=== PATIENT | female | born 1945 | race Caucasian/White ===

== ENCOUNTER → 2019-03-19 09:48 | Outpatient (CLI) | payer MEDICARE, OTHER, SELFPAY ==
[2019-03-19 09:47] VITALS: BMI 28.3
--- NOTE | 2019-03-19 09:49 | RAD_ITS ---
STUDY: X-RAY - LEFT KNEE REASON FOR EXAM: Female, 73 years old. Left knee pain TECHNIQUE: 4 view(s) of the knee. COMPARISON: None. FINDINGS: Normal visualized distal femur. Normal visualized proximal tibia and fibula. Normal proximal tibiofibular articulation. There is severe degenerative arthrosis of the medial femorotibial compartment with severe joint space narrowing. There is mild degenerative arthrosis of the lateral femorotibial compartment. There is severe degenerative arthrosis of the patellofemoral articulation. There is a soft tissue prominence in the suprapatellar region suggesting a small volume joint effusion. There are atherosclerotic calcifications. RAD/Knee 4 or More Views IMPRESSION: Tricompartment osteoarthrosis, as above. Electronically Signed: Jayden Alvarez MD (Brooks) at 17:11 EDT , Service support ,
--- NOTE | 2019-03-19 09:49 | RAD_ITS ---
STUDY: X-RAY - RIGHT KNEE REASON FOR EXAM: Female, 73 years old. Right knee pain TECHNIQUE: 4 view(s) of the knee. COMPARISON: None. FINDINGS: Normal visualized distal femur. Normal visualized proximal tibia and fibula. Normal proximal tibiofibular articulation. There is moderate degenerative arthrosis of the medial femorotibial compartment with moderate joint space narrowing. There is moderate degenerative arthrosis of the lateral femorotibial compartment with moderate joint space narrowing. There is moderate degenerative arthrosis of the patellofemoral articulation. There is a soft tissue prominence in the suprapatellar region suggesting a small volume joint effusion. There is mild subluxation of the femur in relation to the tibia, likely degenerative. The soft tissue structures are unremarkable. RAD/Knee 4 or More Views IMPRESSION: Tricompartmental arthrosis. Electronically Signed: Jayden Alvarez MD (Brooks) at 17:13 EDT , Service support ,
== END ==
PROVIDERS: Referring Provider Orthopaedic Surgery; Visit Provider Orthopaedic Surgery
DX: M17.0 Bilateral primary osteoarthritis of knee (principal)
CPT/HCPCS: 73564

== ENCOUNTER 2021-06-20 12:00 | Emergency (ER) | payer MEDICARE, OTHER, SELFPAY ==
[2021-06-20 12:02] VITALS: BP 143/108; PULSE 136; RESP 18; TEMP 36.1; O2SAT 100; BMI 31.6
--- NOTE | 2021-06-20 12:05 | ED.RN ---
called for ekg at 1205.
--- NOTE | 2021-06-20 12:07 | EKG12_ITS ---
Test Reason : SOB/TACHY Blood Pressure : / mmHG Vent. Rate : 137 BPM Atrial Rate : 267 BPM P-R Int : 000 ms QRS Dur : 080 ms QT Int : 320 ms P-R-T Axes : 000 043 -39 degrees QTc Int : 483 ms Atrial fibrillation Nonspecific ST and T wave abnormality Abnormal ECG Confirmed by DANIE JIMÉNEZ, JOEY ([id number]), legal editor SAKSHI FARMER ([id number]) on 06/22/2021 12:42:54 PM Referred By: MAYURI/RAMONA Confirmed By:VLADIMIR HELTON MD
--- NOTE | 2021-06-20 12:15 | ED.VIS.CHEST ---
HPI History of Present Illness Chief Complaint: Shortness of Breath Detail of Chief Complaint: Palpitations. Informant: patient Onset/Context/Timing Onset: Days Activity at onset: gradual Timing: Continuous Associated Symptoms: Positive for Dyspnea and Palpitations; Negative for Nausea, Vomiting, Diaphoresis, Cough, Fever, Lightheadedness and Acid Reflux Narrative Narrative: 75-year-old female history of hypothyroidism and hypertension. No prior cardiac disease that she is aware of. States has been short of breath with palpitations and skipping heartbeats for the last week. Primary care physician sent her in emergency department be evaluated. She denies any history of DVT or PE. No leg swelling. No recent travel or surgery or immobilization. No hemoptysis. No chest pain. Prior Similar Symptoms: No Recent Illness/Hospitalization: No CVD Risk Factors: Positive for Hypertension and Smoking; Negative for Diabetes and Hypercholesterolemia PE Risk Factors: Negative for Recent Travel/Surgery, Recent Immobilization, Prior DVT or PE, Cancer and OCP + Smoking + >/=35 TAD Risk Factors: Positive for Hypertension; Negative for Marfan's Syndrome PFSH PFSH Home Medications atenolol 25 mg PO DAILY 06/20/21 [History Last Taken 06/20/21] atorvastatin 40 mg PO QHS 06/20/21 [History Last Taken 06/19/21] ibuprofen 400 mg PO QHS 06/20/21 [History Last Taken 06/19/21] levothyroxine [Euthyrox] 88 mcg PO DAILY 06/20/21 [History Last Taken 06/20/21] omeprazole magnesium [Prilosec OTC] 20 mg PO DAILY 06/20/21 [History Last Taken 06/19/21] Allergy/AdvReac Type Severity Reaction Status Date / Time No Known Allergies Allergy Verified 06/20/21 12:01 Social History Smoking Status: Current every day smoker tobacco type: e-cigarettes ROS ROS ED ROS Narrative Short of breath. Palpitations. Accelerated heart rate. Yes Review of Systems ROS Unobtainable: Denies due to encephalopathy Constitutional Constitutional ED: Denies fever(s) Eyes Eyes: Denies none ENT ENT ED: Denies ear pain Cardiovascular Cardiovascular: Reports as per HPI, palpitations and racing heartbeat; Denies chest pain Respiratory/Chest Respiratory/Chest: Reports dyspnea; Denies cough Gastrointestinal Gastrointestinal: Denies abdominal pain, diarrhea, nausea or vomiting Genitourinary Genitourinary ED: Denies dysuria Musculoskeletal Musculoskeletal: Denies myalgias Integumentary Denies rash Neurologic Neurologic: Denies headache(s) Psychiatric Psychiatric: Denies depression Hematologic/Lymphatic Hematologic/Lymphatic: Denies easy bruising Allergic/Immunologic Allergic/Immunologic ED: Denies urticaria EXAM Physical Exam Narrative Exam Narrative: 75-year-old female no distress. On the monitor she is in A. fib RVR rate about 136. Pulse ox 9% on room air no hypoxia. Afebrile. She does not look septic or toxic. HEENT exam unremarkable. Neck nontender no JVD. Lungs clear to auscultation bilaterally. Heart irregularly irregular rate about 136 no murmur. A. fib with RVR. Chest were nontender. Abdomen soft nontender. Moving all 4 extremities. Calves are nontender without edema. Neurologically she is awake and alert moving all 4 extremities. Const Vital Signs: 06/20/21 12:02 06/20/21 12:15 06/20/21 12:16 Temperature 97.0 F L Temperature Source Temporal Pulse Rate 136 H Respiratory Rate 18 Respiratory Effort Normal Non-Labored Short of Breath Respiratory Depth Normal Respiratory Pattern Normal Blood Pressure 143/108 H Blood Pressure Mean 119 Pulse Ox 100 Oxygen Delivery Method Room Air Room Air Room Air 06/20/21 12:37 06/20/21 13:43 06/20/21 15:12 Temperature Temperature Source Pulse Rate 59 L 61 108 H Respiratory Rate 17 13 16 Respiratory Effort Respiratory Depth Respiratory Pattern Blood Pressure 90/59 L 104/70 116/94 H Blood Pressure Mean 69 81 101 Pulse Ox 96 98 97 Oxygen Delivery Method Room Air Room Air Room Air 06/20/21 15:49 Temperature Temperature Source Pulse Rate 120 H Respiratory Rate 14 Respiratory Effort Respiratory Depth Respiratory Pattern Blood Pressure 122/84 H Blood Pressure Mean 96 Pulse Ox 98 Oxygen Delivery Method Room Air Positive well nourished and well developed; Negative for obese, cachectic, contractures or unkempt General Appearance ED: well developed and NAD; Negative for unkempt, cachectic, contractures or pallor Nutritional Appearance: Negative for cachectic or obese HEENT Reports moist mucous membranes normocephalic and atraumatic; Negative for trauma or tenderness Eyes PERRL and EOMs intact bilaterally Neck no lymphadenopathy, supple and no JVD General: Negative for tenderness Chest Wall inspection of chest normal and palpation of chest normal Chest: Negative for tenderness Resp normal respiratory effort and clear to auscultation bilaterally Effort and Inspection: respiratory distress Auscultation: Negative for rales, rhonchi or wheezes Cardio no murmurs; Negative for regular rate or regular rhythm Rate: tachycardic and other Other Details: Atrial fibrillation with RVR rate about 136. GI normal to inspection, nondistended, normoactive bowel sounds, soft to palpation, non-tender, non-distended and no masses Auscultation: Negative for hyperactive bowel sounds Back/Spine no CVA tenderness General Back: Negative for CVA tenderness Extremity normal to inspection General Extremety ED: Negative for edema or tenderness General Extremity: Negative for edema Neuro oriented x3 Sensorium / Orientation: awake, alert, oriented to person, oriented to place and oriented to time Motor Exam: strength 5/5 throughout Psych mental status grossly normal Appearance: Negative for unkempt Mood & Affect: Negative for depressed or tearful Skin no rashes or lesions noted and no wounds General Skin Exam: Negative for jaundice or pallor MDM MDM MDM Narrative Medical decision making narrative: 75-year-old female with recurrent A. fib RVR. Be treated with Cardizem 25 mg IV. She may or may not have to go on a drip. She will undergo a cardiac work-up. Patient was given a dose of IV Cardizem. Her heart rate 1-60. She was only given 15 mg of the Cardizem because she had such a profound response to it. She then became transiently hypotensive which is improved with IV fluids and time. Repeat exam at 330 her heart rate still A. fib she is between 90 and 125.` I was planning on admitting the patient on a Cardizem drip she and her daughter really do not want her admitted. We discussed at length. She will be given a dose of labetalol and observe if her rate stays below 100 and she is doing well and comfortable with her being discharged home with close follow-up. If she continues to be tachycardic then she will be reassessed and discussed admission again. Should be turned over to the afternoon physician. Lab Data Attestation: I reviewed the patient's lab results. Lab results narrative: CBC shows a normal white count 8. Hemoglobin 13. PT, INR and PTT are normal. Electrolytes show a gap of 7 BUN of 20 creatinine 1. Glucose 136. Troponin VII TSH 3.78. Labs: Laboratory Results - last 24 hr 06/20/21 06/20/21 06/20/21 12:12 12:12 12:12 WBC 8.4 RBC 4.51 Hgb 13.2 Hct 39.8 MCV 88.2 MCH 29.3 MCHC 33.2 RDW Std Deviation 40.7 RDW Coeff of Opal 12.6 Plt Count 270 MPV 10.2 Immature Gran % (Auto) 0.400 Neut % (Auto) 56.1 Lymph % (Auto) 32.8 [place] % (Auto) 7.8 Eos % (Auto) 2.2 Baso % (Auto) 0.7 Absolute Neuts (auto) 4.7 Absolute Lymphs (auto) 2.74 Nucleated RBC % 0 PT 12.1 INR 1.0 APTT 28.1 Sodium 137 Potassium 4.4 Chloride 104 Carbon Dioxide 26.0 Anion Gap 7 BUN 20 H Creatinine 1.06 H Estim Creat Clear Calc 51.36 Est GFR (MDRD) Af Amer 65 Est GFR (MDRD) Non-Af 54 L BUN/Creatinine Ratio 18.9 Glucose 136 H Calcium 9.4 Troponin I High Sens 7 TSH 3.78 H Radiography Chest X-Ray - ED: 1 View, Read by ED Physician, Heart, Lungs, Mediastinum, Bony Structures, No Acute Disease and Chronic Changes Diagnostic Testing: Clinical Impression(s) from Imaging Studies Chest X-Ray 06/20/21 12:20 IMPRESSION: Hyperinflation. The lungs are clear. Electronically Signed: Francisco J Ambrose MD at 12:30 EST , Service support , Single view chest x-ray shows no acute abnormality. Normal cardiac silhouette. No infiltrates. No failure. Rhythm Strip Rhythm Strip: A-fib Rate: 136 Ectopy: None EKG Initial EKG: Attestation: I personally reviewed and interpreted this EKG as follows: Interpretation: No Acute Injury Pattern and Atrial Fibrillation Comments: Atrial fibrillation with rapid ventricular rate. No acute signs of [place]. Follow-up EKG: Attestation: I personally reviewed and interpreted this EKG as follows: Interpretation: Atrial Fibrillation Comments: Second EKG was obtained that the patient was treated with IV Cardizem. She remains in A. fib but now has a controlled rate at 60. Prior EKG tracings: available for review Prior: Unchanged Discharge Plan Triage Chief Complaint: Shortness of Breath ED Provider: Humza Singer Dx/Rx/DC Orders Clinical Impression: Atrial fibrillation with rapid ventricular response, History of atrial fibrillation, History of hypothyroidism Instructions: ED AFIB Prescriptions: No Action atorvastatin 40 mg tablet 40 mg PO QHS RF: 0 atenolol 25 mg tablet 25 mg PO DAILY RF: 0 levothyroxine [Euthyrox] 88 mcg tablet 88 mcg PO DAILY RF: 0 ibuprofen 200 mg Tablet 400 mg PO QHS RF: 0 omeprazole magnesium [Prilosec OTC] 20 mg Tablet,Delayed Release (Dr/Ec) 20 mg PO DAILY RF: 0 Primary Care Provider: Mahnaz Cali NP Referrals: Mahnaz Cali NP, DIRECTOR EDUCATION-C [Primary Care Provider] - As soon as possible Activity Restrictions/Additional Instructions: Follow-up with your rn production as soon as possible. Continue your current medications. Return if feeling worse. Disposition Disposition: Home, Self Care
[2021-06-20 12:20] LABS: Absolute Lymphocyte Count 2.74 X10^3/uL (0.83-4.51); Absolute Neutrophil Count 4.7 X10^3/uL (2.0-7.7); Basophil# 0.06 X10^3/uL; Basophil% 0.7 % (0-1); Eosinophil# 0.18 X10^3/uL; Eosinophils% 2.2 % (0-5); Hematocrit 39.8 % (37-47); Hemoglobin 13.2 g/dL (12.0-15.0); Lymphocyte # 2.74 X10^3/ul (0.83-4.51); Lymphocyte % 32.8 % (19-41); Mean Corp Hgb Conc 33.2 g/dL (32-36); Mean Corpuscular Hgb 29.3 pg (27.0-32.0); Mean Corpuscular Volume 88.2 fL (81-99); Mean Platelet Vol. 10.2 fl (6.2-12.0); Monocyte# 0.65 X10^3/uL; Monocyte% 7.8 % (0-10); NRBC Flagged by Analyzer 0 % (0-5); Neutrophil # 4.69 X10^3/uL (2.7-7.7); Neutrophil % 56.1 % (47-70); Platelet Count 270 K/mm3 (150-450); RBC Distribution Width CV 12.6 % (11.6-14.6); RBC Distribution Width SD 40.7 fl (35.1-43.9); Red Blood Count 4.51 M/mm3 (4.2-5.4); White Blood Count 8.4 K/mm3 (4.4-11.0)
--- NOTE | 2021-06-20 12:20 | RAD_ITS ---
STUDY: X-RAY CHEST REASON FOR EXAM: Female, 75 years old. Chest pain and shortness of breath for months. TECHNIQUE: Single AP portable view of the chest. COMPARISON: None. FINDINGS: EKG electrodes are seen. There is hyperinflation of the lungs consistent with chronic obstructive lung disease (COPD). There is no demonstrated pleural abnormality. Normal size heart. Normal mediastinum and arnold. Normal visualized pulmonary arteries. There is atherosclerotic calcification of the aortic arch with tortuosity. Normal visualized thoracic spine. Normal visualized ribs, clavicles, and shoulders. There is no demonstrated abnormality of the visualized soft tissue structures of the upper abdomen. RAD/Chest 1 View (Portable) IMPRESSION: Hyperinflation. The lungs are clear. Electronically Signed: Francisco J Ambrose MD at 12:30 EST , Service support ,
[2021-06-20] MEDS: dilTIAZem 25 MG/5 ML Vial IV BOLUS (12:22)
[2021-06-20 12:28] LABS: Prothrombin Time (Protime)PT. 12.1 SECONDS (11.7-14.9)
[2021-06-20 12:29] LABS: Partial Thromboplast Time 28.1 Seconds (24.1-36.2)
[2021-06-20] MEDS: DiphenhydrAMINE 50 MG/ML Syringe 25 MG IV (12:31)
--- NOTE | 2021-06-20 12:32 | ED.RN ---
Pt. reports feeling itching at arm then face became flushed and hot. pt. was only given about 15mg of Cardizem. Doctor notified of symptoms and Benadryl was ordered and given. Normal saline bolus also give, as pressure was 81/49.
[2021-06-20 12:37] VITALS: BP 90/59; PULSE 59; RESP 17; O2SAT 96
--- NOTE | 2021-06-20 12:41 | EKG12_ITS ---
Test Reason : REPEAT-RHYTHM CHANGE Blood Pressure : / mmHG Vent. Rate : 060 BPM Atrial Rate : 076 BPM P-R Int : 000 ms QRS Dur : 082 ms QT Int : 392 ms P-R-T Axes : 000 012 -27 degrees QTc Int : 392 ms Atrial fibrillation Nonspecific ST abnormality Abnormal ECG Confirmed by DANIE JIMÉNEZ, JOEY ([id number]), manuscript editor SAKSHI FARMER ([id number]) on 06/22/2021 12:43:21 PM Referred By: RAMONA Confirmed By:VLADIMIR HELTON MD
[2021-06-20 12:44] LABS: Anion Gap 7 (5-15); BUN 20 mg/dL (7-18); BUN/Creat Ratio 18.9 RATIO (10-20); Calcium,Total 9.4 mg/dL (8.5-10.1); Chloride 104 mmol/L (98-107); Creatinine, Serum 1.06 mg/dL (0.55-1.02); EST Glomerular Filtration Rate 54 mL/min (>60); Est Glom Filt Rate - Afr Amer 65 mL/min (>60); Estimated Creatinine Clearance 51.36 ml/min; Glucose 136 mg/dL (74-106); Potassium 4.4 mmol/L (3.5-5.1); Sodium Level 137 mmol/L (136-145); Thyroid Stim Hormone (TSH) 3.78 uIU/mL (0.358-3.74); Troponin-I HS 7 pg/mL (3.0-54.0)
[2021-06-20 13:43] VITALS: BP 104/70; PULSE 61; RESP 13; O2SAT 98
[2021-06-20 15:12] VITALS: BP 116/94; PULSE 108; RESP 16; O2SAT 97
[2021-06-20] MEDS: Labetalol (Prefilled) 20 MG/4 ML 10 MG IV (15:47)
[2021-06-20 15:49] VITALS: BP 122/84; PULSE 120; RESP 14; O2SAT 98
[2021-06-20 16:34] VITALS: BP 111/98; PULSE 115; RESP 16; O2SAT 98
== END 2021-06-20 17:09 | disposition home or self-care (01) ==
PROVIDERS: Emergency Provider Emergency Medicine; PCP Nurse Practitioner Primary Care
DX: I48.91 Unspecified atrial fibrillation (principal); E03.9 Hypothyroidism, unspecified; I10 Essential (primary) hypertension; F17.290 Nicotine dependence, other tobacco product, uncomplicated; Z79.899 Other long term (current) drug therapy
CPT/HCPCS: 71045; 80048; 84443; 84484; 85025; 85610; 85730; 93005; 96374; 96375; 99284; A4216

== ENCOUNTER 2021-06-21 15:01 | Observation (INO) | payer MEDICARE, OTHER, SELFPAY ==
[2021-06-21] VITALS (18 sets, daily range): BP systolic 101–135; BP diastolic 61–104; PULSE 80–140; RESP 12–25; TEMP 36.3–36.7; O2SAT 88–100; BMI 31.5
--- NOTE | 2021-06-21 16:00 | EKG12_ITS ---
Test Reason : AFIB Blood Pressure : / mmHG Vent. Rate : 134 BPM Atrial Rate : 117 BPM P-R Int : 000 ms QRS Dur : 062 ms QT Int : 296 ms P-R-T Axes : 000 044 -55 degrees QTc Int : 442 ms Atrial fibrillation Low voltage QRS (Limb Leads) Nonspecific ST and T wave abnormality Abnormal ECG Confirmed by WINDY JIMÉNEZ, LILIAN ([id number]), digital editor SAKSHI FARMER ([id number]) on 06/22/2021 12:30:52 PM Referred By: SARAH Confirmed By:LILIAN TEMPLE MD
--- NOTE | 2021-06-21 16:01 | EX.ED.DYSGE1 ---
HPI History of Present Illness Chief Complaint: Palpitations Informant: patient Narrative Narrative: Patient returns to the ER today secondary to A. fib RVR. Patient went to see her doctor yesterday secondary to hypothyroidism. She was noted to be in A. fib RVR and was sent to the emergency room. Patient was treated here but she refused admission to the hospital. Patient states she is been able to arrange care for her animals and returns back with a heart rate of 140. She denies chest pain. She admits to having intermittent palpitations for years. [facility] Medical History History of atrial fibrillation History of hypothyroidism Home Medications atenolol 25 mg PO DAILY 06/20/21 [History Last Taken 06/21/21] atorvastatin 40 mg PO QHS 06/20/21 [History Last Taken 06/20/21] ibuprofen 400 mg PO QHS 06/20/21 [History Last Taken 06/20/21] levothyroxine [Euthyrox] 88 mcg PO DAILY 06/20/21 [History Last Taken 06/21/21] omeprazole magnesium [Prilosec OTC] 20 mg PO DAILY 06/20/21 [History Last Taken 06/21/21] Allergy/AdvReac Type Severity Reaction Status Date / Time No Known Allergies Allergy Verified 06/20/21 12:01 Social History Smoking Status: Current every day smoker tobacco type: e-cigarettes ROS ROS ED Constitutional Constitutional ED: Denies chills or fever(s) Eyes Eyes: Denies change in vision ENT ENT ED: Denies sore throat Cardiovascular Cardiovascular: Reports palpitations and racing heartbeat; Denies chest pain Respiratory/Chest Respiratory/Chest: Reports dyspnea; Denies cough Gastrointestinal Gastrointestinal: Denies abdominal pain, diarrhea, nausea or vomiting Genitourinary Genitourinary ED: Denies dysuria Musculoskeletal Musculoskeletal: Reports neck pain; Denies back pain Integumentary Denies rash Neurologic Neurologic: Denies headache(s) or weakness Allergic/Immunologic Allergic/Immunologic ED: Denies urticaria EXAM Physical Exam Const Vital Signs: 06/21/21 15:03 06/21/21 17:05 Temperature 97.3 F L Temperature Source Temporal Pulse Rate 140 H 87 Respiratory Rate 18 12 Blood Pressure 118/76 104/75 Blood Pressure Mean 90 84 Pulse Ox 96 95 Oxygen Delivery Method Room Air Room Air Positive well nourished and well developed General Appearance ED: well developed HEENT Reports moist mucous membranes Eyes PERRL and EOMs intact bilaterally Neck supple Chest Wall inspection of chest normal and palpation of chest normal Resp normal respiratory effort and clear to auscultation bilaterally Cardio Rhythm: abnormal rhythm irregularly irregular GI non-tender Palpation: soft Extremity normal to inspection Neuro oriented x3 Sensorium / Orientation: alert Skin no rashes or lesions noted MDM MDM MDM Narrative Medical decision making narrative: Patient's work-up yesterday is reviewed. Lab work including troponin and TSH done at that time. Chest x-ray reviewed and clear. Today repeat EKG along with BMP and troponin obtained. Patient given 10 mg of IV Cardizem. Lab Data Attestation: I reviewed the patient's lab results. Labs: Laboratory Results - last 24 hr 06/21/21 06/21/21 15:45 15:45 Sodium 137 Potassium 4.4 Chloride 107 Carbon Dioxide 24.0 Anion Gap 6 BUN 21 H Creatinine 1.03 H Estim Creat Clear Calc 52.72 Est GFR (MDRD) Af Amer 67 Est GFR (MDRD) Non-Af 55 L BUN/Creatinine Ratio 20.4 H Glucose 122 H Calcium 8.9 Troponin I High Sens 10 EKG Initial EKG: Attestation: I personally reviewed and interpreted this EKG as follows: Interpretation: Atrial Fibrillation (A. fib RVR at 134. Minimal, 1/2 mm, ST depression in the lateral precordial leads.) Follow-up EKG: Attestation: I personally reviewed and interpreted this EKG as follows: Interpretation: Atrial Fibrillation (A. fib at 99 with no acute ischemia.) Treatment and Re-Evaluation Comments:: Repeat evaluation patient's heart rate is now in the 90s. I will discuss patient with hospitalist. She has been given a dose of Lovenox here as initial dose of anticoagulant. Discharge Plan Triage Chief Complaint: Palpitations ED Provider: Sridevi Rutledge Dx/Rx/DC Orders Clinical Impression: Atrial fibrillation with rapid ventricular response, New onset a-fib Prescriptions: No Action atorvastatin 40 mg tablet 40 mg PO QHS RF: 0 atenolol 25 mg tablet 25 mg PO DAILY RF: 0 levothyroxine [Euthyrox] 88 mcg tablet 88 mcg PO DAILY RF: 0 ibuprofen 200 mg Tablet 400 mg PO QHS RF: 0 omeprazole magnesium [Prilosec OTC] 20 mg Tablet,Delayed Release (Dr/Ec) 20 mg PO DAILY RF: 0 Primary Care Provider: Ward Barker Referrals: Ward Barker MD [Primary Care Provider] - Disposition Disposition: Acute Care Hospital [facility]
[2021-06-21] MEDS: dilTIAZem 25 MG/5 ML Vial 10 MG IV BOLUS (16:26)
[2021-06-21 16:28] LABS: Anion Gap 6 (5-15); BUN 21 mg/dL (7-18); BUN/Creat Ratio 20.4 RATIO (10-20); Calcium,Total 8.9 mg/dL (8.5-10.1); Chloride 107 mmol/L (98-107); Creatinine, Serum 1.03 mg/dL (0.55-1.02); EST Glomerular Filtration Rate 55 mL/min (>60); Est Glom Filt Rate - Afr Amer 67 mL/min (>60); Estimated Creatinine Clearance 52.72 ml/min; Glucose 122 mg/dL (74-106); Potassium 4.4 mmol/L (3.5-5.1); Sodium Level 137 mmol/L (136-145)
--- NOTE | 2021-06-21 16:30 | EKG12_ITS ---
Test Reason : REPEAT Blood Pressure : / mmHG Vent. Rate : 099 BPM Atrial Rate : 129 BPM P-R Int : 000 ms QRS Dur : 068 ms QT Int : 336 ms P-R-T Axes : 000 034 -36 degrees QTc Int : 431 ms Atrial fibrillation with premature ventricular or aberrantly conducted complexes Low voltage QRS (Limb Leads) Nonspecific ST and T wave abnormality Abnormal ECG Confirmed by WINDY JIMÉNEZ, LILIAN ([id number]), health editor SAKSHI FARMER ([id number]) on 06/22/2021 12:34:59 PM Referred By: SARAH Confirmed By:LILIAN TEMPLE MD
[2021-06-21] MEDS: Enoxaparin 80 MG/0.8 ML Syringe 70 MG SC (17:04)
[2021-06-21 17:20] LABS: Troponin-I HS 10 pg/mL (3.0-54.0)
--- NOTE | 2021-06-21 17:37 | NURSING ---
DR TOMLINSON FOR DR DARLING
--- NOTE | 2021-06-21 17:39 | PCM.PN.HOSP ---
Objective Data Objective Data Vital Signs: Vital Signs Temp Pulse Resp BP Pulse Ox 97.3 F L 87 12 104/75 95 06/21/21 15:03 06/21/21 17:05 06/21/21 17:05 06/21/21 17:05 06/21/21 17:05 Oxygen Delivery Method Room Air Weight: 70.76 kg Body Mass Index (BMI) 31.5 Lab / Micro Data Result Diagrams: 06/21/21 15:45 06/21/21 15:45 Labs: Laboratory Results - last 24 hr 06/21/21 15:45: Sodium 137, Potassium 4.4, Chloride 107, Carbon Dioxide 24.0, Anion Gap 6, BUN 21 H, Creatinine 1.03 H, Estim Creat Clear Calc 52.72, Est GFR (MDRD) Af Amer 67, Est GFR (MDRD) Non-Af 55 L, BUN/Creatinine Ratio 20.4 H, Glucose 122 H, Calcium 8.9 06/21/21 15:45: Troponin I High Sens 10
--- NOTE | 2021-06-21 17:46 | NURSING ---
PCU OBS [facility] AFIB
--- NOTE | 2021-06-21 17:56 | PCM.HP.STD ---
HPI - General General Date of Admission: 06/21/21 Date of Service: 06/21/21 Chief Complaint: Palpitations HPI Narrative ENRIKE MARS, is a 75 F who presents who presents with palpitations. Patient has past medical history is known for hypertension hypothyroidism as well as dyslipidemia. Patient had been seen in the emergency department a day prior to her admission. She was noticed to be in A. fib with RVR she was offered admission she however declined went home. She was seen and evaluated by her primary care physician on the day of admission she was still found to be in A. fib with heart rate greater than 120 was sent to the ED from where patient was admitted to monitored bed for further management [facility] Medical History History of atrial fibrillation History of hypothyroidism Home Medications atenolol 25 mg PO DAILY 06/20/21 [History Last Taken 06/21/21] atorvastatin 40 mg PO QHS 06/20/21 [History Last Taken 06/20/21] ibuprofen 400 mg PO QHS 06/20/21 [History Last Taken 06/20/21] levothyroxine [Euthyrox] 88 mcg PO DAILY 06/20/21 [History Last Taken 06/21/21] omeprazole magnesium [Prilosec OTC] 20 mg PO DAILY 06/20/21 [History Last Taken 06/21/21] Allergy/AdvReac Type Severity Reaction Status Date / Time No Known Allergies Allergy Verified 06/20/21 12:01 Family History (Updated 06/21/21 @ 17:[address] Umer Figueroa MD) Father Hypertension Heart disease Social History Smoking Status: Current every day smoker tobacco type: e-cigarettes ROS ROS Narrative GENERAL: denies fever, chills, HEENT: denies headache, sinus congestion, RESPIRATORY: shortness of breath, dyspnea on exertion CARDIAC: palpitations, GASTROINTESTINAL: denies abdominal pain, GENITOURINARY: denies dysuria, urgency, frequency, EXTREMITY: denies swelling MUSCULOSKELETAL: denies current joint pain NEUROLOGIC: denies focal numbness, weakness, tingling HEMATOLOGIC: denies easy bruising and/or hemorrhage INTEGUMENT: denies rashes PSYCHIATRIC: denies suicidal or homicidal ideation Vital Signs Vital Signs Vital Signs: 12/16/21 15:03 06/21/21 17:05 06/21/21 17:43 Temperature 97.3 F L 97.3 F L Temperature Source Temporal Temporal Pulse Rate 140 H 87 90 Respiratory Rate 18 12 15 Blood Pressure 118/76 104/75 112/79 Blood Pressure Mean 90 84 90 Pulse Ox 96 95 97 Oxygen Delivery Method Room Air Room Air Room Air Weight Weight: 70.76 kg Body Mass Index (BMI) 31.5 Physical Exam Narrative GENERAL: cooperative HEENT: Atraumatic; EYES; Anicteric, Normal Conjunctiva NECK; supple, normal thyroid, RESPIRATORY: Diminished to auscultation CARDIOVASCULAR: Irregularly irregular tachycardic GI: soft, normoactive bowel sounds, : No Renal angle tenderness; EXTREMITIES: No edema, no clubbing, MUSCULOSKELETAL: no muscle waisting NEURO: Awake; no lateralizing signs. SKIN: No Rash PSYCH; Flat affect Results Lab / Micro Data Result Diagrams: 06/21/21 15:45 06/21/21 15:45 Labs: Laboratory Results - last 24 hr 06/21/21 15:45: Sodium 137, Potassium 4.4, Chloride 107, Carbon Dioxide 24.0, Anion Gap 6, BUN 21 H, Creatinine 1.03 H, Estim Creat Clear Calc 52.72, Est GFR (MDRD) Af Amer 67, Est GFR (MDRD) Non-Af 55 L, BUN/Creatinine Ratio 20.4 H, Glucose 122 H, Calcium 8.9 06/21/21 15:45: Troponin I High Sens 10 Assessment & Plan Assessment/Plan (1) Atrial fibrillation with rapid ventricular response: (2) New onset a-fib: PLAN: Patient is a 75-year-old lady presented with palpitations 1. New onset A. fib with RVR ?Patient has been admitted to a monitored bed started on Cardizem drip titrated to keep heart rate less than 100. As part of patient's management ordered TSH D-dimer as well as a 2D echo. Patient was also started on systemic anticoagulation with therapeutic Lovenox 2. Hypothyroidism - Patient is on levothyroxine home dose continued 3. Hypertension - Blood pressure controlled, home medications continued with dose adjustment as needed 4. GERD ?On PPI 5. Dyslipidemia -Patient is on statin therapy, continued at home dose 6. Tobacco dependence?patient vapes - Counseled on cessation, DVT prophylaxis ?Patient is on Lovenox Advance planning; did discuss with the patient and family regarding advanced directives as well as CODE STATUS. Did explain the various scenarios involved ( FULL CODE, DNR CCA, DNR CCA with no intubation, and DNR CC and what each meant) patient elected to remain full code with CPR and intubation if needed, order was placed. Time spent on discussion 18 minutes. Charges/Coding Visit Charges OBSV E&M: 50134 Initial observation care L3 Procedures Hospitalists Procedures: 24185 Advncd Care Plan 30 Min
[2021-06-21 18:52] LABS: D-Dimer Quantitative (DVT/PE) 1.12 FEU/ug/m (0.27-0.49)
[2021-06-21] MEDS: 0.9% Normal Saline 1,000 ML 75 ML IV (19:08)
[2021-06-21] MEDS: Atorvastatin Calcium 40 MG Tablet PO (20:00)
--- NOTE | 2021-06-21 20:43 | PCS.PANDOC ---
PANDEMIC DOCUMENTATION INITIATED: Date: 02/19/2021 Time: 190
--- NOTE | 2021-06-21 21:47 | CT_ITS ---
EXAM: CT ANGIOGRAPHY CHEST WITHOUT AND WITH INTRAVENOUS CONTRAST CLINICAL INDICATION: elevated ddimer TECHNIQUE: Helically acquired angiography images were obtained of the chest without and with intravenous contrast. CTDIvol = ( 10.32 ) mGy, DLP = ( 381.58 ) mGycm This CT exam was performed using one or more of the following dose reduction techniques: automated exposure control, adjustment of the mA and/or kV according to patient size, and/or use of iterative reconstruction technique. This report was created using [employer] report generation technology. MIP reconstructed images were created and reviewed. CONTRAST: IV 100mL Isovue-370 COMPARISON: None. FINDINGS: PULMONARY ARTERIES: Unremarkable. Normal in caliber. No evidence of pulmonary embolism. AORTA: Unremarkable. Normal in caliber. No evidence of dissection. GREAT VESSELS OF AORTIC ARCH: Unremarkable. Normal in caliber. No evidence of dissection. LUNGS AND PLEURAL SPACES: Interstitial pulmonary edema suspected involving the lower lungs. No consolidation. No perfusion or pneumothorax. No mass. No pleural effusion or thickening. HEART: Unremarkable. Heart size is normal. No pericardial effusion. No signs of right heart strain, ratio of right ventricle to left ventricle measures less than 1. MEDIASTINUM: Small hiatal hernia. No mediastinal or hilar adenopathy. Esophagus is unremarkable. THYROID: Unremarkable. No thyroid lesions. BONES/JOINTS: Degenerative changes of the spine. No suspicious lytic or blastic abnormality. KIDNEYS AND URETERS: Right renal scarring. OTHER FINDINGS: Centrilobular disease involving multiple lobes bilaterally. CT/CTA Chest W/WO Contrast IMPRESSION: 1. No PE or pneumonia. 2. Interstitial pulmonary edema suspected at the lower lungs. 3. Small hiatal hernia. Electronically Signed: Rafy Ruth MD at 22:21 EST Tel , Service support ,
[2021-06-22] VITALS (13 sets, daily range): BP systolic 95–113; BP diastolic 62–82; PULSE 59–102; RESP 14–20; TEMP 36.4–36.7; O2SAT 93–97
[2021-06-22] MEDS: 0.9% Normal Saline 1,000 ML 75 ML IV (05:35)
[2021-06-22] MEDS: Levothyroxine 88 MCG Tablet PO (05:35)
--- NOTE | 2021-06-22 05:55 | ECHOD_ITS ---
Reason For Study: AFIB/FLUTTER Procedure This was a 2D Doppler, Color Flow transthoracic echocardiogram. The study was technically difficult. Due to arrhythmia. Exam performed in department. Left Ventricle Based upon the 2D echocardiographic images obtained there is grossly normal left ventricular size, wall motion, and systolic function. The estimated ejection fraction is 55 %. Unable to assess diastolic dysfunction. Right Ventricle Normal RV size. Normal systolic function. Atria Normal left atrium. The right atrium is mildly enlarged. No doppler evidence for ASD. Mitral Valve There is no mitral annular calcification. Normal mitral valve. Mild-Moderate (1-2+) mitral valve insufficiency. Tricuspid Valve Normal tricuspid valve. Moderately severe (3+) tricuspid valve insufficiency. Right ventricular systolic pressure estimated to be 40 mmHg. Aortic Valve Trisinus/trileaflet aortic valve. Mild focal aortic valve calcification. Pulmonic Valve The pulmonic valve is not well visualized. Trivial pulmonic valve insufficiency. Great Vessels Normal sized aortic root. Pericardium/Pleural No pericardial effusion. MMode/2D Measurements & Calculations LVIDd: 4.5 cm IVSd: 1.0 cm Ao root diam: 3.7 cm LVIDs: 3.3 cm LVPWd: 0.99 cm RVDd: 3.0 cm FS: 27.4 % LAV(MOD-bp): 43.8 ml LA A4 area: 16.5 cm2 LA dimension(2D): 4.3 cm LAV(MOD-bp) Indexed: 26.4 ml/m2 LAV(MOD-sp2): 35.3 ml LAV(MOD-sp4): 46.1 ml RA A4 area: 13.6 cm2 Doppler Measurements & Calculations MV E max josue: 100.0 cm/sec Ao V2 max: 87.0 cm/sec LV V1 max: 71.9 cm/sec Ao max P.1 mmHg LV V1 max P.1 mmHg PA V2 max: 67.1 cm/sec TR max josue: 281.1 cm/sec TR max P.7 mmHg ECHO/Echo Complete Interpretation Summary The study was technically difficult. Based upon the 2D echocardiographic images obtained there is grossly normal lef t ventricular size, wall motion, and systolic function. The estimated ejection fraction is 55 %. The right atrium is mildly enlarged. Mild-Moderate (1-2+) mitral valve insufficiency. Moderately severe (3+) tricuspid valve insufficiency. Mild focal aortic valve calcification. Trivial pulmonic valve insufficiency. Right ventricular systolic pressure estimated to be 40 mmHg c/w pulmonary hyper tension. Unable to assess diastolic dysfunction. Ordering Physician: Umer Figueroa Referring Physician: aSmira Barker Performed By: Monse Pace, TRACEE, RVT
[2021-06-22 06:16] LABS: Absolute Lymphocyte Count 2.66 X10^3/uL (0.83-4.51); Absolute Neutrophil Count 4.3 X10^3/uL (2.0-7.7); Basophil# 0.05 X10^3/uL; Basophil% 0.6 % (0-1); Eosinophil# 0.24 X10^3/uL; Hematocrit 34.6 % (37-47); Hemoglobin 11.3 g/dL (12.0-15.0); Lymphocyte # 2.66 X10^3/ul (0.83-4.51); Lymphocyte % 33.7 % (19-41); Mean Corp Hgb Conc 32.7 g/dL (32-36); Mean Corpuscular Hgb 28.8 pg (27.0-32.0); Mean Corpuscular Volume 88.3 fL (81-99); Mean Platelet Vol. 10.8 fl (6.2-12.0); Monocyte% 7.6 % (0-10); NRBC Flagged by Analyzer 0 % (0-5); Neutrophil # 4.33 X10^3/uL (2.7-7.7); Neutrophil % 54.8 % (47-70); Platelet Count 210 K/mm3 (150-450); RBC Distribution Width SD 41.8 fl (35.1-43.9); Red Blood Count 3.92 M/mm3 (4.2-5.4); White Blood Count 7.9 K/mm3 (4.4-11.0)
[2021-06-22 06:41] LABS: Anion Gap 7 (5-15); BUN 16 mg/dL (7-18); BUN/Creat Ratio 17.1 RATIO (10-20); Chloride 109 mmol/L (98-107); Creatinine, Serum 0.93 mg/dL (0.55-1.02); EST Glomerular Filtration Rate 62 mL/min (>60); Est Glom Filt Rate - Afr Amer 75 mL/min (>60); Estimated Creatinine Clearance 58.75 ml/min; Glucose 116 mg/dL (74-106); Sodium Level 138 mmol/L (136-145)
[2021-06-22] MEDS: Albuterol 2.5 MG/3 ML VIAL.NEB. INHALATION (06:53)
[2021-06-22] MEDS: dilTIAZem CD 180 MG Capsule PO (08:22)
[2021-06-22] MEDS: Atenolol 25 MG Tablet PO (08:23)
[2021-06-22] MEDS: Pantoprazole Sodium 20 MG Tablet PO (08:23)
[2021-06-22] MEDS: Enoxaparin 80 MG/0.8 ML Syringe 70 MG SC (08:23)
--- NOTE | 2021-06-22 10:52 | PN.HOSP_ITS ---
Subjective Subjective Patient has been transitioned from IV Cardizem to p.o. Cardizem and Lovenox discontinued and started on Eliquis Objective Data Objective Data Vital Signs: Vital Signs Temp Pulse Resp BP Pulse Ox 98.0 F 91 16 95/72 94 06/22/21 09:20 06/22/21 09:20 06/22/21 09:20 06/22/21 09:20 06/22/21 09:20 Oxygen Flow Rate (L/min) 2 Oxygen Delivery Method Room Air Weight: 71.2 kg Body Mass Index (BMI) 31.5 Intake & Output: Intake and Output for Last 24 Hours 06/20/21 06/21/21 06/22/21 23:59 23:59 23:59 Intake Total 27.50 / 37.50 1260.42 / 1260.42 Balance 27.50 / 37.50 1260.42 / 1260.42 Lab / Micro Data Result Diagrams: 06/22/21 05:50 06/22/21 05:50 Labs: Laboratory Results - last 24 hr 06/21/21 15:45: Sodium 137, Potassium 4.4, Chloride 107, Carbon Dioxide 24.0, Anion Gap 6, BUN 21 H, Creatinine 1.03 H, Estim Creat Clear Calc 52.72, Est GFR (MDRD) Af Amer 67, Est GFR (MDRD) Non-Af 55 L, BUN/Creatinine Ratio 20.4 H, Glucose 122 H, Calcium 8.9 06/21/21 15:45: Troponin I High Sens 10 06/21/21 15:45: D-Dimer Quant (PE/DVT) 1.12 H* 06/22/21 05:50: WBC 7.9, RBC 3.92 L, Hgb 11.3 L, Hct 34.6 L, MCV 88.3, MCH 28.8, MCHC 32.7, RDW Std Deviation 41.8, RDW Coeff of Opal 13.0, Plt Count 210, MPV 10.8, Immature Gran % (Auto) 0.300, Neut % (Auto) 54.8, Lymph % (Auto) 33.7, [place] % (Auto) 7.6, Eos % (Auto) 3.0, Baso % (Auto) 0.6, Absolute Neuts (auto) 4.3, Absolute Lymphs (auto) 2.66, Nucleated RBC % 0 06/22/21 05:50: Sodium 138, Potassium 4.0, Chloride 109 H, Carbon Dioxide 22.0, Anion Gap 7, BUN 16, Creatinine 0.93, Estim Creat Clear Calc 58.75, Est GFR (MDRD) Af Amer 75, Est GFR (MDRD) Non-Af 62, BUN/Creatinine Ratio 17.1, Glucose 116 H, Calcium 8.0 L, Magnesium 2.0 Radiography Diagnostic Testing: Radiology Impression Chest CTA 06/21/21 21:47 IMPRESSION: 1. No PE or pneumonia. 2. Interstitial pulmonary edema suspected at the lower lungs. 3. Small hiatal hernia. Electronically Signed: Rafy Ruth MD at 22:21 EST Tel , Service support , Physical Exam Narrative GENERAL: cooperative HEENT: Atraumatic; EYES; Anicteric, Normal Conjunctiva NECK; supple, normal thyroid, RESPIRATORY: Diminished to auscultation CARDIOVASCULAR: Irregularly irregular tachycardic GI: soft, normoactive bowel sounds, : No Renal angle tenderness; EXTREMITIES: No edema, no clubbing, MUSCULOSKELETAL: no muscle waisting NEURO: Awake; no lateralizing signs. SKIN: No Rash PSYCH; Flat affect Assessment & Plan Assessment/Plan (1) Atrial fibrillation with rapid ventricular response: (2) New onset a-fib: PLAN: Patient is a 75-year-old lady presented with palpitations 1. New onset A. fib with RVR ?Patient has been admitted to a monitored bed started on Cardizem drip titrated to keep heart rate less than 100. As part of patient's management ordered TSH D-dimer as well as a 2D echo. Patient was also started on systemic anti coagulation with therapeutic Lovenox -06/22/2021; patient remains in A. fib however rate is well controlled. Patient has been transitioned from IV Cardizem and SC Lovenox to p.o. Cardizem and Eliquis respectively. Awaiting echo result prior to patient being discharged home 2. Hypothyroidism - Patient is on levothyroxine home dose continued 3. Hypertension - Blood pressure controlled, home medications continued with dose adjustment as needed 4. GERD ?On PPI 5. Dyslipidemia -Patient is on statin therapy, continued at home dose 6. Tobacco dependence?patient vapes - Counseled on cessation, 7. DVT prophylaxis ?Patient is on Lovenox Charges/Coding Visit Charges OBSV E&M: 20392 Subsequent observation care L3
--- NOTE | 2021-06-22 15:30 | PCM.DC.SUM ---
Providers Date of Admission: 06/21/21 Primary Care Physician: Dr. Ward Barker MD Reason For Visit: NEW ONSET A. FIB Diagnosis Discharge Diagnosis (1) Atrial fibrillation with rapid ventricular response: Status: Acute Code(s): I48.91 - Unspecified atrial fibrillation (2) New onset a-fib: Status: Acute Code(s): I48.91 - Unspecified atrial fibrillation Medications at Discharge Home Medications atenolol 25 mg PO DAILY 06/20/21 atorvastatin 40 mg PO QHS 06/20/21 levothyroxine [Euthyrox] 88 mcg PO DAILY 06/20/21 omeprazole magnesium [Prilosec OTC] 20 mg PO DAILY 06/20/21 albuterol sulfate 0.63 mg INHALATION Q4H PRN 06/21/21 apixaban [Eliquis] 5 mg PO BID #120 tab 06/22/21 diltiazem HCl 180 mg PO DAILY #60 cap 06/22/21 Hospital Course Procedures 2-D Echocardiogram Summary of Care Provided Minutes Spent on Discharge: 35 Hospital Course: Patient is a 75-year-old lady presented with palpitations 1. New onset A. fib with RVR ?Patient has been admitted to a monitored bed started on Cardizem drip titrated to keep heart rate less than 100. As part of patient's management ordered TSH D-dimer as well as a 2D echo. Patient was also started on systemic anticoagulation with therapeutic Lovenox -06/22/2021; patient remains in A. fib however rate is well controlled. Patient has been transitioned from IV Cardizem and SC Lovenox to p.o. Cardizem and Eliquis respectively. Awaiting echo result prior to patient being discharged home -Patient echo results are as below. Patient was discharged home with new prescriptions written for Cardizem and Eliquis. 2. Hypothyroidism - Patient is on levothyroxine home dose continued 3. Hypertension - Blood pressure controlled, home medications continued with dose adjustment as needed 4. GERD ?On PPI 5. Dyslipidemia -Patient is on statin therapy, continued at home dose 6. Tobacco dependence?patient vapes - Counseled on cessation, 7. DVT prophylaxis ?Patient is on Lovenox Physical Exam Narrative GENERAL: cooperative HEENT: Atraumatic; EYES; Anicteric, Normal Conjunctiva NECK; supple, normal thyroid, RESPIRATORY: Diminished to auscultation CARDIOVASCULAR: Irregularly irregular tachycardic GI: soft, normoactive bowel sounds, : No Renal angle tenderness; EXTREMITIES: No edema, no clubbing, MUSCULOSKELETAL: no muscle waisting NEURO: Awake; no lateralizing signs. SKIN: No Rash PSYCH; Flat affect Weight / BMI Weight Weight: 71.2 kg Body Mass Index (BMI) 31.5 ABG / Lab / Microbiology Data Result Diagrams: 06/22/21 05:50 06/22/21 05:50 Laboratory: Laboratory Results - last 24 hr 06/21/21 15:45: Sodium 137, Potassium 4.4, Chloride 107, Carbon Dioxide 24.0, Anion Gap 6, BUN 21 H, Creatinine 1.03 H, Estim Creat Clear Calc 52.72, Est GFR (MDRD) Af Amer 67, Est GFR (MDRD) Non-Af 55 L, BUN/Creatinine Ratio 20.4 H, Glucose 122 H, Calcium 8.9 06/21/21 15:45: Troponin I High Sens 10 06/21/21 15:45: D-Dimer Quant (PE/DVT) 1.12 H* 06/22/21 05:50: WBC 7.9, RBC 3.92 L, Hgb 11.3 L, Hct 34.6 L, MCV 88.3, MCH 28.8, MCHC 32.7, RDW Std Deviation 41.8, RDW Coeff of Opal 13.0, Plt Count 210, MPV 10.8, Immature Gran % (Auto) 0.300, Neut % (Auto) 54.8, Lymph % (Auto) 33.7, [place] % (Auto) 7.6, Eos % (Auto) 3.0, Baso % (Auto) 0.6, Absolute Neuts (auto) 4.3, Absolute Lymphs (auto) 2.66, Nucleated RBC % 0 06/22/21 05:50: Sodium 138, Potassium 4.0, Chloride 109 H, Carbon Dioxide 22.0, Anion Gap 7, BUN 16, Creatinine 0.93, Estim Creat Clear Calc 58.75, Est GFR (MDRD) Af Amer 75, Est GFR (MDRD) Non-Af 62, BUN/Creatinine Ratio 17.1, Glucose 116 H, Calcium 8.0 L, Magnesium 2.0 Radiography Diagnostic Testing: Radiology Impression Chest CTA 06/21/21 21:47 IMPRESSION: 1. No PE or pneumonia. 2. Interstitial pulmonary edema suspected at the lower lungs. 3. Small hiatal hernia. Electronically Signed: Rafy Ruth MD at 22:21 EST Tel , Service support , Echocardiogram 06/22/21 05:55 Interpretation Summary The study was technically difficult. Based upon the 2D echocardiographic images obtained there is grossly normal left ventricular size, wall motion, and systolic function. The estimated ejection fraction is 55 %. The right atrium is mildly enlarged. Mild-Moderate (1-2+) mitral valve insufficiency. Moderately severe (3+) tricuspid valve insufficiency. Mild focal aortic valve calcification. Trivial pulmonic valve insufficiency. Right ventricular systolic pressure estimated to be 40 mmHg c/w pulmonary hypertension. Unable to assess diastolic dysfunction. Ordering Physician: Umer Figueroa Referring Physician: Samira Barker Performed By: Monse Pace, TRACEE, RVT Meaningful Use Info Meaningful Use Diagnoses (Choose all that apply): None applicable Discharge Plan Admission Admit Date/Time: 06/21/21 17:43 Attending Provider: Umer Figueroa Primary Care Provider: Ward Barker Discharge Orders/Prescriptions Prescriptions: New diltiazem HCl 180 mg Capsule,Extended Release 24hr 180 mg PO DAILY Qty: 60 RF: 0 Eliquis 5 mg Tablet 5 mg PO BID Qty: 120 RF: 0 Continued atorvastatin 40 mg tablet 40 mg PO QHS RF: 0 atenolol 25 mg tablet 25 mg PO DAILY RF: 0 levothyroxine [Euthyrox] 88 mcg tablet 88 mcg PO DAILY RF: 0 omeprazole magnesium [Prilosec OTC] 20 mg Tablet,Delayed Release (Dr/Ec) 20 mg PO DAILY RF: 0 albuterol sulfate 0.63 mg/3 mL Solution For Nebulization 0.63 mg INHALATION Q4H PRN (Reason: SOB) RF: 0 Discontinued ibuprofen 200 mg Tablet 400 mg PO QHS RF: 0 Referrals / Follow Up: Ward Barker MD [Primary Care Provider] - In 1 Week Disposition Disposition (needs filled in before D/C Order can be placed): Home, Self Care Charges/Coding Visit Charges OBSV E&M: 23385 Observation care discharge
--- NOTE | 2021-06-22 15:50 | CASEMGMT ---
Pt to be sent home on Eliquis at discharge and med e-scribed to [facility] pharmacy. Per [facility] pharmacy, they cannot find prescription insurance for pt and they applied an Eliquis 30 day free trial card. This RN CM to room and pt is updated on all. Pt states pays out of pocket for meds and [employer] reimburses her a percentage. Pt states she will not be able to cover the cost of Eliquis and this RN CM informed her that it was covered for the month and to f/u with cardiology on other options, if Eliquis is not feasible, pt/daughter voice understanding and gratitude. Pt voices no further questions/concerns/needs. SStaten KENDRA CM
== END 2021-06-22 15:34 | disposition home or self-care (01) ==
LOC: ED 17:34 → PCU 17:54
PROVIDERS: Admitting Provider Internal Medicine; Emergency Provider Emergency Medicine; PCP Family Medicine; Visit Provider Internal Medicine
DX: I48.91 Unspecified atrial fibrillation (principal); E03.9 Hypothyroidism, unspecified; F17.290 Nicotine dependence, other tobacco product, uncomplicated; I10 Essential (primary) hypertension; E78.5 Hyperlipidemia, unspecified; K21.9 Gastro-esophageal reflux disease without esophagitis; Z79.899 Other long term (current) drug therapy; Z79.890 Hormone replacement therapy
CPT/HCPCS: 36415; 71275; 80048; 83735; 84484; 85025; 85379; 93005; 93306; 94640; 96365; 96366; 96372; 96376; 99218; 99251; 99285; J7030; J7040; Q9967; A4216; G0378; G0463

== ENCOUNTER 2021-08-29 12:33 | Outpatient (CLI) | payer MEDICARE, OTHER, SELFPAY ==
--- NOTE | 2021-08-29 12:53 | CT_ITS ---
STUDY: CT LEFT LOWER EXTREMITY WITHOUT CONTRAST REASON FOR EXAM: Left knee osteoarthritis, surgical planning. TECHNIQUE: Transaxial CT imaging of the lower extremity was performed. Coronal and sagittal images were reformatted. Individualized dose optimization techniques were used for this CT. COMPARISON: Radiographs 08/13/2021. FINDINGS: Knee: There are marginal osteophytes and severe joint space narrowing of the medial femorotibial compartment (coronal reconstruction 28). There are marginal osteophytes and joint space narrowing of the lateral femorotibial compartment (coronal reconstruction 29). There are marginal osteophytes, lateral tilt and lateral subluxation of the patella, and joint space narrowing of the patellofemoral articulation (axial image 264). There is a small soft tissue calcification at the medial aspect of the proximal tibial diametaphysis (coronal reconstruction 24). There is a small popliteal cyst (sagittal reconstruction 34). There is vascular calcification. There is atrophy of the soleus muscle with fat replacement (axial image 517). There is osteopenia. Hip: There is preservation of joint space of the left hip. Ankle: Normal tibiotalar, posterior subtalar and talonavicular joint. There is a small posterior calcaneal enthesophyte. There are ossicles distal to the medial malleolus (coronal reconstruction 14). CT/Extremity Lower without Contra IMPRESSION: Left knee osteoarthritis. Electronically Signed: Ryan Crandall MD at 14:52 EST ,
== END 2021-08-29 23:59 | disposition home or self-care (01) ==
LOC: CT 12:34
PROVIDERS: PCP Family Medicine; Referring Provider Orthopaedic Surgery; Visit Provider Orthopaedic Surgery
DX: M17.12 Unilateral primary osteoarthritis, left knee (principal)
CPT/HCPCS: 73700

== ENCOUNTER 2021-09-11 05:59 | Day surgery (SDC) | payer MEDICARE, OTHER, SELFPAY ==
--- NOTE | 2021-08-29 12:51 | EKG12_ITS ---
Test Reason : PREOP Blood Pressure : / mmHG Vent. Rate : 053 BPM Atrial Rate : 053 BPM P-R Int : 174 ms QRS Dur : 078 ms QT Int : 420 ms P-R-T Axes : 051 048 036 degrees QTc Int : 394 ms Sinus bradycardia Nonspecific ST abnormality Abnormal ECG Confirmed by WINDY JIMÉNEZ, LILIAN ([id number]), index editor SAKSHI FARMER ([id number]) on 08/30/2021 8:26:46 AM Referred By: Gt Domingo Confirmed By:LILIAN TEMPLE MD
[2021-08-29 13:12] LABS: Absolute Lymphocyte Count 2.43 X10^3/uL (0.83-4.51); Absolute Neutrophil Count 3.7 X10^3/uL (2.0-7.7); Basophil# 0.05 X10^3/uL; Basophil% 0.7 % (0-1); Eosinophil# 0.18 X10^3/uL; Eosinophils% 2.6 % (0-5); Hematocrit 39.3 % (37-47); Hemoglobin 13.3 g/dL (12.0-15.0); Lymphocyte # 2.43 X10^3/ul (0.83-4.51); Lymphocyte % 35.1 % (19-41); Mean Corp Hgb Conc 33.8 g/dL (32-36); Mean Corpuscular Hgb 29.3 pg (27.0-32.0); Mean Corpuscular Volume 86.6 fL (81-99); Mean Platelet Vol. 9.9 fl (6.2-12.0); Monocyte# 0.55 X10^3/uL; Monocyte% 7.9 % (0-10); NRBC Flagged by Analyzer 0 % (0-5); Neutrophil # 3.69 X10^3/uL (2.7-7.7); Neutrophil % 53.4 % (47-70); Platelet Count 278 K/mm3 (150-450); RBC Distribution Width CV 12.8 % (11.6-14.6); RBC Distribution Width SD 40.3 fl (35.1-43.9); Red Blood Count 4.54 M/mm3 (4.2-5.4); White Blood Count 6.9 K/mm3 (4.4-11.0)
[2021-08-29 13:19] LABS: International Normalized Ratio 1.1; Prothrombin Time (Protime)PT. 13.6 SECONDS (11.7-14.9)
[2021-08-29 13:20] LABS: Partial Thromboplast Time 28.9 Seconds (24.1-36.2)
[2021-08-29 14:00] LABS: Anion Gap 3 (5-15); BUN 20 mg/dL (7-18); BUN/Creat Ratio 21.7 RATIO (10-20); Calcium,Total 9.5 mg/dL (8.5-10.1); Chloride 104 mmol/L (98-107); Creatinine, Serum 0.92 mg/dL (0.55-1.02); EST Glomerular Filtration Rate 63 mL/min (>60); Est Glom Filt Rate - Afr Amer 76 mL/min (>60); Glucose 108 mg/dL (74-106); Potassium 4.4 mmol/L (3.5-5.1); Sodium Level 136 mmol/L (136-145)
[2021-08-29 14:08] LABS: AST(SGOT) 18 U/L (15-37); Alanine Aminotransfer ALT/SGPT 28 U/L (13-56); Albumin, Serum 3.7 g/dL (3.2-5.0); Alkaline Phosphatase 134 U/L (45-117); Bilirubin, Direct 0.13 mg/dL (0.00-0.30); Magnesium 2.2 mg/dL (1.6-2.6); Protein, Total 7.7 g/dL (6.4-8.2); Thyroid Stim Hormone (TSH) 1.21 uIU/mL (0.358-3.74)
[2021-08-31 11:26] LABS: Fructosamine 234 umol/L (0-285)
[2021-09-11] VITALS (9 sets, daily range): BP systolic 91–146; BP diastolic 55–78; PULSE 50–80; RESP 12–16; TEMP 36.3–36.8; O2SAT 98–100; BMI 30.7
--- NOTE | 2021-09-11 | KNEE_PTH ---
PATIENT: ENRIKE MARS LOC: [facility] [place] U#:[id number] AGE/SX: 76/F ROOM: RE09/11/[address]: Dr. Gt Domingo DO : 1945 BED: DIS: 09/11/2021 SPEC #: [id number] RECD: 09/11/21 12:53 STATUS: ALBINO REUche #: [id number] CAMILO: 09/11/21 00:[address]: Gt Domingo DEPT: SURGICAL PATHOLOGY RECD BY: Bakari Goldberg ENTERED: 09/12/21 10:16 SP TYPE: TOTAL KNEE OTHR DR: Dr. Ward Barker MD Tissues: Knee, NOS Procedures: Decalcification bone/plaque Surgery Specimen Level IV HEADER OPERATION: ERAS, total knee replacement robotic arm assist PRE-OP DIAGNOSIS: Left knee pain TISSUE SUBMITTED: Tibia and femur bone MICROSCOPIC DIAGNOSIS Tibia and femur bone, total knee replacement/resection: Pieces of bone with degenerative osteoarthritic changes. Fibroadipose tissue, fibroconnective tissue and reactive synovial tissue. MARYANN:logan 09/17/2021 MICROSCOPIC DESCRIPTION Slides are reviewed. GROSS DESCRIPTION Received is one container designated tibia and femur bone. The specimen consists of multiple fragments of bauer-yellow bone measuring in aggregate 9 x 9 x 2 cm. Also in the specimen container are multiple fragments of yellow-white soft tissue measuring in aggregate 6 x 1.5 x 1.5 cm. The soft tissue predominantly consists of one large piece of bauer, indurated tissue. A number of bony fragments contain articular surfaces consistent with tibial plateau and femoral condyle and displaying prominent osteophyte formation, eburnation, and bone erosion. Robotic Weld Technician sections are submitted in two cassettes as follows: 1 - soft tissue, 2 - bone after decalcification. / MARYANN:logan 09/12/2021 :5 CPT: 74991, 14393
[2021-09-11] MEDS: Lactated Ringers 1,000 ML 125 ML IV ×2 (06:34→10:34)
[2021-09-11] MEDS: Acetaminophen 500 MG Tablet 1000 MG PO (06:34)
[2021-09-11] MEDS: Scopolamine 1mg/72hr Patch 1 PATCH TD (06:35)
[2021-09-11] MEDS: Gabapentin 600 MG Tablet PO (06:35)
--- NOTE | 2021-09-11 07:10 | PCM.HP.BLA ---
History and Physical Date of Admission: 09/11/21 Date of Service: 08/31/21 MR#:[id number]:[id number]: ENRIKE MARS [facility] #:[id number]:1945 Provider:Dr. Gt Domingo, Age/Sex: 76/F Location:[facility]:Signed Intake Intake Visit Reasons: left knee Chief Complaint: SOB, Heart racing Allergies No Known Allergies Allergy (Verified 08/28/21 08:40) Medications atenolol 25 mg PO DAILY 06/20/21 [History Confirmed 08/31/21] atorvastatin 40 mg PO QHS 06/20/21 [History Confirmed 08/31/21] levothyroxine [Euthyrox] 100 mcg PO DAILY 06/20/21 [History Confirmed 08/31/21] omeprazole magnesium [Prilosec OTC] 20 mg PO DAILY 06/20/21 [History Confirmed 08/31/21] albuterol sulfate 0.63 mg INHALATION Q4H PRN 06/21/21 [History Confirmed 08/31/21] apixaban [Eliquis] 5 mg PO BID 08/28/21 [History Confirmed 08/31/21] diltiazem HCl 180 mg PO DAILY 08/28/21 [History Confirmed 08/31/21] PFSH Medical History Chronic pain Full dentures GERD (gastroesophageal reflux disease) High cholesterol History of atrial fibrillation History of hypothyroidism Hypertension Hypothyroidism Sleep apnea Smoker Surgical History (Updated 08/13/21 @ 11:04 by Reba King) Hx of excision of mass Hx of hysterectomy Family History (System 08/08/21 @ 14:27 by Cynthia Monson) Father Hypertension Heart disease Social History (System 08/08/21 @ 14:27 by Cynthia Monson) Smoking Status: Current every day smoker tobacco type: e-cigarettes HPI left knee Details: Parts of this documentation were recorded by a scribe, this documentation accurately reflects the service provided and the decisions made by me, Dr. Gt Domingo, 08/31/21 1020. ENRIKE MARS is a 76 year old F here today for IOVERA tx of the left knee. She is scheduled to under go a left TKA on 09/11/21. She continues to have the left knee pain which is worse with standing and ambulation. Denies numbness, tingling or other associated symptoms. Ortho Exam General General: Yes no acute distress Neurologic: Yes alert and Yes oriented x3 Psychologic: Yes reasonable and appropriate Right Knee Skin/Wound: No erythema, No ecchymosis and No swelling Knee ROM: No ROM-Extension -20 to 0 (lacking 2) and No ROM-Flexion 0-140 (100) Examination: Yes Med jt line tenderness and Yes Lat jt line tenderness Stability: NML: Anterior Drawer and NML: Posterior Drawer Patella Grind: Yes Left Knee Knee ROM: No ROM-Extension -20 to 0 (lacking 2) and No ROM-Flexion 0-140 (100) Examination: Yes med jt line tenderness Stability: NML: Valgus 0 and NML: Varus 0 and 1+: Anterior Drawer and 1+: Posterior Drawer Patella Grind: Yes Office Procedures Iovera Procedure Details:: Preoperative diagnosis : left knee pain Postoperative diagnosis: Same Procedure: Cryotherapy with Iovera device to anterior femoral cutaneous nerve and 2 branches of the infrapatellar saphenous nerve III nerves in total Description of procedure: Patient was brought back to the procedure room the operative extremity was identified by both patient and physician. The PIP flexion crease was measured to the midpoint of the patella and this distance was divided in 3 resulting in 10 cm location proximal to the midpoint of the patella. This line was extended medial and lateral to the extent of the edges of the patella. This was our treatment line for the anterior femoral cutaneous nerve. A second treatment line was made 5 cm medial to the inferior pole of the patella and 5 cm distally. The leg was prepped with alcohol and Betadine. Lidocaine with epi was used along the treatment lines. Using the Iovera device treatment lines were treated with 1 minute cycles. Reproduction of paresthesias was monitored in the area of nerve distribution. Once all 3 nerves were treated across the 2 treatment lines patient was cleaned and a light dressing with 4 x 4 and Derek wrap was applied. Patient tolerated the procedure without complication. Supplemental Info 08/13/2021 x-ray of bilateral knees advanced tricompartmental DJD 03/19/2019 x-ray left knee: severe tricompartmental DJD [id number] 03/19/2019 x-ray right knee: Severe tricompartmental DJD [id number] Coding Level of Care Code Attention Speech Lang Path Diagnoses Left knee pain M25.562 Assessment and Plan Assessment and Plan (1) Left knee pain: Status: Acute Plan - Dr. Gt Domingo DO: Patient is here today for the IOVERA treatment of the left knee prior to TKA on 09/11/21. She did well without complication no concern today. she will bring her walker with her the day of surgery as she has her own. She will stop the Eliquis on 09/08/21. Plan Details Other Orders: Orders: Iovera Today M25.569 08/31/21 1116<Electronically signed by Gt Domingo DO>Date Gt Domingo DO Cosigner Signature:Date (if applicable) CC: ~I have re-examined the patient. There are no clinical changes since date of exam
[2021-09-11 07:11] LABS: Bedside Glucose 112 mg/dL (74-106)
[2021-09-11] MEDS: Cefazolin 2 GM in 0.9% Normal Saline 100 ML IV (08:00)
[2021-09-11] MEDS: TXA 1000mg in NS100 100ml (IVPB at Incision) 660 MG IV (08:10)
[2021-09-11] MEDS: dexAMETHasone 10 MG/ML Vial IV (08:10)
[2021-09-11] MEDS: Epinephrine (1 mg/ml) 1 MG/ML VIAL (09:22)
[2021-09-11] MEDS: 0.9% Normal Saline (Pres. free 10 ML Vial (09:22)
[2021-09-11] MEDS: Bupivacaine Mpf 0.5% 30 ML VIAL (09:22)
[2021-09-11] MEDS: Betamethasone/Betamethasone 30 MG/5 ML Vial (09:22)
[2021-09-11] MEDS: TXA 1000mg in NS100 100ml (IVPB at Closure) 660 MG IV (09:42)
--- NOTE | 2021-09-11 10:05 | OP.PCM_ITS ---
Report of Operation Date of Procedure: 09/11/21 Description of Surgical Findings:: Preoperative diagnosis: Left knee DJD Postoperative diagnosis: Same Procedure: Left total knee arthroplasty CT guided Robotic Assisted Implant: [place] triathlon cemented, femoral component size 3, tibial baseplate size 3, asymmetric patella size 29, polyethylene X3 size 11 CS Anesthesia: Spinal with adductor canal block Tourniquet time: 31 minutes at 300 mmHg divided into 2 sessions Complications: None Condition: Stable to PACU Estimated blood loss: 200 cc Indication for procedure: This is a 76-year-old female with long standing degenerative joint disease of the knee who has failed conservative treatment and wished to proceed with elective total knee arthroplasty. Risk benefits and alternatives were reviewed including; risk of bleeding, infection, nerve artery and tissue damage, continued pain, postoperative stiffness, venous thromboembolism, need for postoperative rehabilitation, mechanical feel to the knee, and expected postoperative course. The pre- operative CT and templating was performed with component sizing. Procedure: The patient was met in the preoperative holding area. The operative extremity was identified by both patient and physician and was marked. Patient was met by anesthesia. An adductor canal block was placed by anesthesia postoperatively the patient was brought back to the operating room on a wheeled cart and transferred to the operating table in the supine position. Anesthesia was started. A well-padded tourniquet was placed on the operative extremity. The patient was prepped and draped in the usual sterile fashion. A timeout was called to ensure the proper patient procedure and extremity were being contemplated. An esmarch was used to exsanguinate the extremity. The tourniquet was inflated. A 10 blade scalpel was used to make a midline incision down through the skin and subcutaneous tissue. Skin retractors placed. Bovie and Aquamantis were used to perform meticulous hemostasis. full-thickness flaps were elevated medial and lateral along the joint capsule. A deep blade scalpel was used to perform a medial parapatellar arthrotomy. The knee was brought to full extension. A bovie was used to release the soft tissues off the most proximal aspect of the medial tibial plateau, a three-quarter inch curved osteotome was also used in this process. The infrapatellar fat pad was excised. The suprapatellar fat pad was excised partially anteriorolateraly and portion the anterioromedial pad was elevated from the femur. At this point our intra- articular femoral array was placed at a 45 degree angle proximal and posterior to the medial epicondyle. femoral checkpoint was placed at this time. Our tibial array was placed greater than 1 hands breath below the incision at a 20 degree angle stab incisions were made with a 15 blade scalpel and pins were placed and attached to the tibial array , tibial checkpoint was placed in the proximal tibial metaphysis. Tourniquet was let down. At this point registration rudolph were taken throughout the knee . Once the knee was registered we then tensioned the medial and lateral ligaments in extension and 90 degrees of flexion. We then used these numbers to adjust our components within parameters to balance the knee in both flexion and extension once this was done on our monitor we then proceeded with using the robotic arm to make our tibial plateau cut, anterior and posterior chamfer and distal femur cuts. we removed the cut fragments with the use of a bovie and Mahnaz, we did use a lamina novelty twister operator to insure we visualized and removed all posterior osteophytes and at this time also used the Aquamantis on the posterior joint capsule. we then trialed and achieved the desired plan with a well-balanced knee. we used the green probe to beau the corresponding tibial rotation based on our CT t emplate. Lug holes were drilled in the femur the tibia preparation was completed with the appropriate sized base plate pinned based on previous rotation beau. An appropriate sized fin punch was used on the tibia and the patella was prepared by first using a caliper to ensure sufficient bone stock and a patellar reamer to remove the desired amount of bone. lug holes drilled for an asymmetric poly. We then brought the knee through range of motion with excellent patellar tracking. We thoroughly irrigated the knee. Trial components were removed a posterior capsular injection was preformed with our standard cocktail. In addition the aqua Mantis was also used to aid in hemostasis. Components were cemented into place excess cement was removed with a [place] elevator. Betadine rinse then irrigation followed by Aricept rinse was then used followed by several more liters of irrigation after it was allowed to sit. The joint capsule was closed with #1 Ethibond [id number] followed by Vicryl in the subcutaneous tissues with mary in the skin. Arrays and checkpoints were removed prior to closure all counts were correct stab incisions were closed with a staple standard dressing in the form of Mepilex AG for the main incision and a small Mepilex over the pin holes. Thigh-high DAPHNE hose applied over top of dressing. Patient tolerated the procedure well and was directed to PACU in stable condition . There were no intraoperative complications.
--- NOTE | 2021-09-11 10:08 | EX.PCM.DISCH ---
Discharge Instructions Activity Weight Bearing Status: Weight bearing as tolerated Additional Activity Instructions:: Ice and elevate one week while not ambulating. Ambulation is encouraged. Weightbearing as tolerated. Use assistive devise for stability. Encourage FULL knee extension and flexion 1 time EVERY time you get up and down and MULTIPLE times per day. No showering 72 hours after surgery. Begin showering postop day #3. Remove the dressing prior to shower and gently wash with warm water and antibacterial soap then pat dry and place abdominal pad (or plain gauze) and DAPHNE hose over top. This is to be done daily. Do not submerge for 3 weeks. If not showering daily after the initial 72 hours then you must clean incision and change dressing daily. Do not allow animals near the incision area. Keep clean. Follow anticoagulation recommendations as prescribed. Do not take any NSAIDs while on blood thinner. Do not take any additional narcotic pain medication other than what was prescribed on your surgery day without discussing with physician. Narcotic medication can be addictive. Do not drink alcohol while taking narcotics. Start physical therapy. If you are not currently scheduled for physical therapy or you are unsure of appointment time please call office [facility] to arrange. Call Dr. Domingo with any concerns. Dressing / Incision Call your doctor if you observe: Shortness of breath and Chest pain Follow Up Care Please Follow Up With: Gt Domingo DO When: 2 weeks Test Results: Test results from this visit will be discussed in further detail at your follow-up appointment, if applicable. Discharge Plan Admission Admit Date/Time: 09/11/21 05:59 Attending Provider: Gt Domingo Primary Care Provider: Ward Barker Discharge Orders/Prescriptions Prescriptions: New acetaminophen 500 mg Tablet 1,000 mg PO Q6H Qty: 100 RF: 0 oxycodone 5 mg Tablet 5 - 10 mg PO Q4H PRN PRN (Reason: Pain Score 4-10) 7 Days Qty: 60 RF: 0 cephalexin [cephalexin] 500 MG capsule 1,000 mg PO Q8 Qty: 4 RF: 0 Continued atorvastatin 40 mg tablet 40 mg PO QHS RF: 0 atenolol 25 mg tablet 25 mg PO DAILY RF: 0 levothyroxine [Euthyrox] 88 mcg tablet 100 mcg PO DAILY RF: 0 omeprazole magnesium [Prilosec OTC] 20 mg Tablet,Delayed Release (Dr/Ec) 20 mg PO DAILY RF: 0 diltiazem HCl 180 mg capsule,extended release 24hr 180 mg PO DAILY RF: 0 albuterol sulfate 0.63 mg/3 mL Solution For Nebulization 0.63 mg INHALATION Q4H PRN (Reason: SOB) Qty: 0 RF: 0 Held Eliquis 5 mg tablet 5 mg PO BID RF: 0 Hold Instructions: Resume on 09/12/21. Begin day after surgery Other Ambulatory Orders: COVID 19 AG RAPID (RN COLLECT) (Routine) Timeframe: [id number] Facility: [facility] - Location: Laboratory Ordered By: Dr. Calvin Moreland 12 Lead EKG (Routine) Location: None Selected Ordered By: Dr. Gt Domingo Referrals / Follow Up: Ward Barker MD [Primary Care Provider] - Disposition Discharge Orders: Discharge Patient (Routine); Ordered 09/11/21 Ordered By: Dr. Gt Domingo
--- NOTE | 2021-09-11 10:34 | RAD_ITS ---
STUDY: X-RAY - LEFT KNEE REASON FOR EXAM: Female, 76 years old. Total knee arthroplasty. TECHNIQUE: 2 view(s) of the knee. COMPARISON: 08/13/2021. FINDINGS: There is a 3 component total knee arthroplasty in anatomic position. There are expected post-operative findings. There are no complications. No other significant abnormality is identified. RAD/Knee 1 or 2 Views IMPRESSION: Total knee arthroplasty in anatomic alignment without complications. Electronically Signed: Dell Wakefield MD at 13:04 EST ,
--- NOTE | 2021-09-11 11:45 | CASEMGMT ---
Addendum entered by Rosemary Castellanos 09/11/21 13:18: Received tc back from [facility], they will see pt tomorrow for SOC. TC to pt dtr Kimberly and Alicia GARDNER aware as well. Original Note: KENDRA CHOUDHURY received tc from requesting pt be set up for [facility] as pt had change of plans and will be dc'ing from the OR this date. KENDRA CHOUDHURY met with pt and dtr Kimberly in room. Patient was provided a list of [facility] providers including quality and resource use data and consistent with the patient?s preferred geographic region, medical needs, and insurance network. The patient?s preferred provider is [facility], [employer] and [facility] in that order. Pt does have a FWW in room. TC to [facility], spoke with Renata in intake referral made, awaiting acceptance. Will notify pt dtr via tc after acceptance from an agency.
[2021-09-11] MEDS: oxyCODONE 5 MG Tablet PO (11:58)
[2021-09-11] MEDS: Cefazolin 1 GM/50 ML BAG IV (12:48)
== END 2021-09-11 23:59 | disposition home health service (06) | DRG 470 ==
LOC: ACINP 09-25 07:52 → SDC 09-25 07:52
PROVIDERS: Anesthesiology; PCP Family Medicine; Referring Provider Orthopaedic Surgery; Visit Provider Orthopaedic Surgery
PROC: 0SRD0JZ Replacement of Left Knee Joint with Synthetic Substitute, Open Approach (ICD-10-PCS; CPT 27447; principal; 2021-09-11 07:20)
DX: M17.12 Unilateral primary osteoarthritis, left knee (principal); I27.20 Pulmonary hypertension, unspecified; I48.91 Unspecified atrial fibrillation; I10 Essential (primary) hypertension; E78.00 Pure hypercholesterolemia, unspecified; K21.9 Gastro-esophageal reflux disease without esophagitis; E03.9 Hypothyroidism, unspecified; Z79.01 Long term (current) use of anticoagulants; Z79.899 Other long term (current) drug therapy; F17.210 Nicotine dependence, cigarettes, uncomplicated
CPT/HCPCS: 27447; 01402; 36415; 73560; 80048; 80076; 82962; 82985; 83735; 84443; 85025; 85610; 85730; 86850; 86900; 86901; 87081; 87426; 88305; 88311; 93005; 97162; C1776; J7120; J0702; J2405; J3490

== ENCOUNTER 2021-09-12 14:06 | Observation (INO) | payer MEDICARE, OTHER, SELFPAY ==
[2021-09-12 14:07] VITALS: BP 150/91; PULSE 104; RESP 16; TEMP 37.1; O2SAT 97; BMI 30.2
--- NOTE | 2021-09-12 14:51 | CT_ITS ---
STUDY: CT BRAIN WITHOUT CONTRAST REASON FOR EXAM: Female, 76 years old. confusion TECHNIQUE: Transaxial CT imaging of the brain was performed without administration of intravenous contrast material. Individualized dose optimization techniques were used for this CT. COMPARISON: None FINDINGS: Normal calvarium. Normal soft tissues. Normal size ventricles and extra-axial spaces for the patient''s age. Normal white matter tracts of the cerebral hemispheres. Normal basal ganglia and thalami. Normal brainstem. Normal cerebellum. There is no intracranial hemorrhage. There are no findings of an acute ischemic infarction. Normal visualized paranasal sinuses. ASPECTS 10 CT/Brain/Head without Contrast IMPRESSION: There are no acute intracranial findings. Electronically Signed: Junior Bunch MD at 17:02 EST ,
--- NOTE | 2021-09-12 14:52 | EKG12_ITS ---
Test Reason : CONFUSION Blood Pressure : / mmHG Vent. Rate : 093 BPM Atrial Rate : 093 BPM P-R Int : 196 ms QRS Dur : 080 ms QT Int : 342 ms P-R-T Axes : 078 012 033 degrees QTc Int : 425 ms Sinus rhythm with Premature supraventricular complexes and with occasional Premature ventricular comp lexes Nonspecific ST and T wave abnormality Abnormal ECG Confirmed by LUCIA JIMÉNEZ, MALATHI ([id number]), restaurant expeditor SAKSHI FARMER ([id number]) on 09/17/2021 10:57:40 AM Referred By: PETE Confirmed By:MALATHI MYERS MD
--- NOTE | 2021-09-12 14:53 | EX.ED.DYSGE1 ---
HPI History of Present Illness Chief Complaint: Lower Extremity Injury Detail of Chief Complaint: Postop confusion, surgical site bleeding Informant: patient and family Narrative Narrative: Patient underwent knee replacement yesterday with Dr. Domingo. She had spinal anesthesia. Daughter states that she was given 1 tab of oxycodone postoperatively and was discharged home at 2 PM. Patient was given another dose of oxycodone at 5 PM and she slept for the next 2 hours. Patient reportedly has not been to sleep since 7 PM last evening. She is more confused and as an example daughter states in the waiting room her mother turned to her and asked her who she was. Daughter states she is been ambulating on her leg quite well. She did note some bleeding from the surgical site today. They called Dr. Domingo's office who recommended she come in for evaluation. Patient denies any pain at this time. PFSH PFSH Medical History Chronic pain Full dentures GERD (gastroesophageal reflux disease) High cholesterol History of atrial fibrillation History of hypothyroidism Hypertension Hypothyroidism Sleep apnea Smoker Home Medications atenolol 25 mg PO DAILY 06/20/21 [History Last Taken 09/11/21 04:30] atorvastatin 40 mg PO QHS 06/20/21 [History Last Taken 06/20/21] levothyroxine [Euthyrox] 100 mcg PO DAILY 06/20/21 [History Last Taken 09/11/21 04:30] omeprazole magnesium [Prilosec OTC] 20 mg PO DAILY 06/20/21 [History Last Taken 09/11/21 04:30] Eliquis 5 mg PO BID 08/28/21 [History Last Taken 09/07/21] diltiazem HCl 180 mg PO DAILY 08/28/21 [History Last Taken Unknown] acetaminophen 1,000 mg PO Q6H #100 tab 09/11/21 [Rx Last Taken Unknown] albuterol sulfate 0.63 mg INHALATION Q4H PRN #0 ml 09/11/21 [Rx Last Taken Unknown] oxycodone 5 - 10 mg PO Q4H PRN PRN 7 Days #60 tab 09/11/21 [Rx Last Taken Unknown] Allergy/AdvReac Type Severity Reaction Status Date / Time No Known Allergies Allergy Verified 09/12/21 19:10 Family History Father Hypertension Heart disease Surgical History (Updated 09/12/21 @ 15:24 by Abbey Gibson) History of total left knee replacement Hx of excision of mass Hx of hysterectomy Social History Smoking Status: Current every day smoker tobacco type: e-cigarettes ROS ROS ED Constitutional Constitutional ED: Denies chills or fever(s) Eyes Eyes: Denies change in vision ENT ENT ED: Denies sore throat Cardiovascular Cardiovascular: Denies chest pain Respiratory/Chest Respiratory/Chest: Denies cough or dyspnea Gastrointestinal Gastrointestinal: Denies abdominal pain, diarrhea, nausea or vomiting Genitourinary Genitourinary ED: Reports urinary frequency Musculoskeletal Musculoskeletal: Reports arthralgias; Denies back pain Integumentary Denies rash Neurologic Neurologic: Denies headache(s) Allergic/Immunologic Allergic/Immunologic ED: Denies urticaria EXAM Physical Exam Const Vital Signs: 09/12/21 14:07 09/12/21 18:00 Temperature 98.7 F Temperature Source Temporal Pulse Rate 104 H 94 Respiratory Rate 16 21 H Blood Pressure 150/91 H Blood Pressure Mean 110 Pulse Ox 97 Oxygen Delivery Method Room Air Room Air Positive well nourished HEENT Reports moist mucous membranes Eyes PERRL and EOMs intact bilaterally Neck supple Chest Wall inspection of chest normal and palpation of chest normal Resp normal respiratory effort and clear to auscultation bilaterally Cardio regular rate and regular rhythm GI non-tender Auscultation: hypoactive bowel sounds Palpation: soft Extremity Extremity Narrative: Dressing over the anterior wound itself is clean and dry. There is a blood saturated dressing noted over the fowler. When this is removed there are [address] in the skin. The upper staple is slightly oozing. Neuro Neuro Narrative: No focal neurologic deficits. Sensorium / Orientation: alert MDM MDM MDM Narrative Medical decision making narrative: Lab work and urinalysis ordered. CT head ordered. The oozing site on the left fowler is cleansed. A piece of Surgifoam was placed along with a dressing. Lab Data Attestation: I reviewed the patient's lab results. Labs: Laboratory Results - last 24 hr 09/12/21 09/12/21 09/12/21 15:15 15:15 15:15 WBC 11.5 H RBC 3.79 L Hgb 10.9 L Hct 32.2 L MCV 85.0 MCH 28.8 MCHC 33.9 RDW Std Deviation 39.8 RDW Coeff of Opal 12.9 Plt Count 255 MPV 10.6 Immature Gran % (Auto) 0.300 Neut % (Auto) 74.7 H Lymph % (Auto) 13.2 L [place] % (Auto) 11.7 H Eos % (Auto) 0.0 Baso % (Auto) 0.1 Absolute Neuts (auto) 8.6 H Absolute Lymphs (auto) 1.52 Nucleated RBC % 0 PT Cancelled INR Cancelled APTT Cancelled Sodium 131 L Potassium 4.3 Chloride 97 L Carbon Dioxide 29.0 Anion Gap 5 BUN 18 Creatinine 0.89 Estim Creat Clear Calc 57.76 Est GFR (MDRD) Af Amer 79 Est GFR (MDRD) Non-Af 65 BUN/Creatinine Ratio 20.2 H Glucose 120 H Calcium 9.1 Troponin I High Sens 18 Urine Color Urine Clarity Urine pH Ur Specific [place] Urine Protein Urine Glucose (UA) Urine Ketones Urine Occult Blood Urine Nitrite Urine Bilirubin Urine Urobilinogen Ur Leukocyte Esterase Urine RBC Urine WBC Ur Squamous Epith Cells Urine Bacteria Urine Mucus 09/12/21 09/12/21 15:57 17:50 WBC RBC Hgb Hct MCV MCH MCHC RDW Std Deviation RDW Coeff of [place]al Plt Count MPV Immature Gran % (Auto) Neut % (Auto) Lymph % (Auto) [place] % (Auto) Eos % (Auto) Baso % (Auto) Absolute Neuts (auto) Absolute Lymphs (auto) Nucleated RBC % PT 13.2 INR 1.1 APTT 26.9 Sodium Potassium Chloride Carbon Dioxide Anion Gap BUN Creatinine Estim Creat Clear Calc Est GFR (MDRD) Af Amer Est GFR (MDRD) Non-Af BUN/Creatinine Ratio Glucose Calcium Troponin I High Sens Urine Color Straw Urine Clarity Clear Urine pH 7.0 Ur Specific [place] 1.010 Urine Protein Negative Urine Glucose (UA) Normal Urine Ketones Negative Urine Occult Blood Negative Urine Nitrite Negative Urine Bilirubin Negative Urine Urobilinogen Normal Ur Leukocyte Esterase Negative Urine RBC 0 SEEN Urine WBC 0 SEEN Ur Squamous Epith Cells 0 SEEN Urine Bacteria 0 SEEN Urine Mucus 0 SEEN Radiography Diagnostic Testing: Clinical Impression(s) from Imaging Studies Brain CT 09/12/21 14:51 IMPRESSION: There are no acute intracranial findings. Electronically Signed: Junior Bunch MD at 17:02 EST Reading Location ID and State: [facility] / [place] , Service support , EKG Initial EKG: Attestation: I personally reviewed and interpreted this EKG as follows: Interpretation: Sinus Rhythm (Sinus at 93 with no acute ischemia.) Treatment and Re-Evaluation Narrative: Patient's lab work reveals no acute changes to suggest cause of her confusion. Head CT is unremarkable. EKG is normal. Will speak with hospitalist regarding observation. Patient's last dose of oxycodone was 26 hours ago. Discharge Plan Triage Chief Complaint: Lower Extremity Injury ED Provider: Sridevi Rutledge Dx/Rx/DC Orders Clinical Impression: Postoperative confusion Prescriptions: No Action atorvastatin 40 mg tablet 40 mg PO QHS RF: 0 atenolol 25 mg tablet 25 mg PO DAILY RF: 0 levothyroxine [Euthyrox] 88 mcg tablet 100 mcg PO DAILY RF: 0 omeprazole magnesium [Prilosec OTC] 20 mg Tablet,Delayed Release (Dr/Ec) 20 mg PO DAILY RF: 0 diltiazem HCl 180 mg capsule,extended release 24hr 180 mg PO DAILY RF: 0 Eliquis 5 mg tablet 5 mg PO BID RF: 0 Hold Instructions: Resume on 09/12/21. Begin day after surgery acetaminophen 500 mg Tablet 1,000 mg PO Q6H Qty: 100 RF: 0 oxycodone 5 mg Tablet 5 - 10 mg PO Q4H PRN PRN (Reason: Pain Score 4-10) 7 Days Qty: 60 RF: 0 albuterol sulfate 0.63 mg/3 mL Solution For Nebulization 0.63 mg INHALATION Q4H PRN (Reason: SOB) Qty: 0 RF: 0 Primary Care Provider: Ward Barker Referrals: Ward Barker MD [Primary Care Provider] - Disposition Disposition: Acute Care [facility]
[2021-09-12 15:31] LABS: Absolute Lymphocyte Count 1.52 X10^3/uL (0.83-4.51); Absolute Neutrophil Count 8.6 X10^3/uL (2.0-7.7); Basophil# 0.01 X10^3/uL; Basophil% 0.1 % (0-1); Hematocrit 32.2 % (37-47); Hemoglobin 10.9 g/dL (12.0-15.0); Lymphocyte # 1.52 X10^3/ul (0.83-4.51); Lymphocyte % 13.2 % (19-41); Mean Corp Hgb Conc 33.9 g/dL (32-36); Mean Corpuscular Hgb 28.8 pg (27.0-32.0); Mean Platelet Vol. 10.6 fl (6.2-12.0); Monocyte# 1.35 X10^3/uL; Monocyte% 11.7 % (0-10); NRBC Flagged by Analyzer 0 % (0-5); Neutrophil # 8.63 X10^3/uL (2.7-7.7); Neutrophil % 74.7 % (47-70); Platelet Count 255 K/mm3 (150-450); RBC Distribution Width CV 12.9 % (11.6-14.6); RBC Distribution Width SD 39.8 fl (35.1-43.9); Red Blood Count 3.79 M/mm3 (4.2-5.4); White Blood Count 11.5 K/mm3 (4.4-11.0)
[2021-09-12 15:54] LABS: Anion Gap 5 (5-15); BUN 18 mg/dL (7-18); BUN/Creat Ratio 20.2 RATIO (10-20); Calcium,Total 9.1 mg/dL (8.5-10.1); Chloride 97 mmol/L (98-107); Creatinine, Serum 0.89 mg/dL (0.55-1.02); EST Glomerular Filtration Rate 65 mL/min (>60); Est Glom Filt Rate - Afr Amer 79 mL/min (>60); Estimated Creatinine Clearance 57.76 ml/min; Glucose 120 mg/dL (74-106); Potassium 4.3 mmol/L (3.5-5.1); Sodium Level 131 mmol/L (136-145); Troponin-I HS 18 pg/mL (3.0-54.0)
[2021-09-12 16:19] LABS: International Normalized Ratio 1.1; Prothrombin Time (Protime)PT. 13.2 SECONDS (11.7-14.9)
[2021-09-12 16:20] LABS: Partial Thromboplast Time 26.9 Seconds (24.1-36.2)
[2021-09-12] MEDS: 0.9% Normal Saline 1,000 ML 150 ML IV (17:59)
[2021-09-12 18:00] VITALS: PULSE 94; RESP 21
[2021-09-12 18:05] LABS: Bacteria 0 SEEN /hpf (None Seen); Mucous, Urine 0 SEEN /hpf (<or=2+); Red Blood Cells-Urine 0 SEEN /hpf (0-5); Squamous Epithelial Cells - UA 0 SEEN /hpf (5-10); White Blood Cells 0 SEEN /hpf (0-5)
[2021-09-12 18:29] LABS: Color, Urine Straw (Yellow); Glucose, Dipstick Normal (Normal); Ketone-Dipstick Negative (Negative); Leukocyte Esterase-Dipstick Negative /ul (Negative); Nitrite-Dipstick Negative (Negative); Occult Blood-Urine Negative /ul (Negative); Protein-Dipstick Negative (Negative); Urine Bilirubin Dipstick Negative (Negative); Urine Clarity Clear (Clear); Urine Urobilinogen Normal (Normal)
[2021-09-12 19:54] VITALS: BP 165/85; PULSE 94; RESP 18; TEMP 36.4; O2SAT 96
--- NOTE | 2021-09-12 19:54 | PCM.HP.STD ---
Documented by User: CORA Fleming 09/12/21 20:08 HPI - General General Date of Admission: 09/12/21 Date of Service: 09/12/21 Chief Complaint: Altered mental status HPI Narrative ENRIKE MARS, is a 76 F who presents with reports of altered mental status. Patient had a total knee replacement yesterday and was discharged home yesterday afternoon with oxycodone for pain. Patient's daughter reports that she received oxycodone here and then a dose at home subsequently a few hours later. Patient's daughter reports that patient has been up since then which was approximately 7 PM last night and has not slept. Patient has been noted to be agitated and restless and confused at home so daughter brought her to the ER. Patient's daughter had also reported frequent urination. Patient reports a medical history of high blood pressure, hypothyroidism, atrial fibrillation. PFSH Medical History Atrial fibrillation with rapid ventricular response Chronic pain Full dentures GERD (gastroesophageal reflux disease) High cholesterol History of atrial fibrillation History of hypothyroidism Hypertension Hypothyroidism New onset a-fib Sleep apnea Smoker Home Medications atenolol 25 mg PO DAILY 06/20/21 [History Last Taken 09/11/21 04:30] atorvastatin 40 mg PO QHS 06/20/21 [History Last Taken 06/20/21] levothyroxine [Euthyrox] 100 mcg PO DAILY 06/20/21 [History Last Taken 09/11/21 04:30] omeprazole magnesium [Prilosec OTC] 20 mg PO DAILY 06/20/21 [History Last Taken 09/11/21 04:30] Eliquis 5 mg PO BID 08/28/21 [History Last Taken 09/07/21] diltiazem HCl 180 mg PO DAILY 08/28/21 [History Last Taken Unknown] acetaminophen 1,000 mg PO Q6H #100 tab 09/11/21 [Rx Last Taken Unknown] albuterol sulfate 0.63 mg INHALATION Q4H PRN #0 ml 09/11/21 [Rx Last Taken Unknown] oxycodone 5 - 10 mg PO Q4H PRN PRN 7 Days #60 tab 09/11/21 [Rx Last Taken Unknown] Allergy/AdvReac Type Severity Reaction Status Date / Time No Known Allergies Allergy Verified 09/12/21 19:10 Family History Father Hypertension Heart disease Surgical History History of total left knee replacement Hx of excision of mass Hx of hysterectomy Social History (Updated 09/12/21 @ 21:[address] Thelma Farooq MD) household members: none Smoking Status: Current every day smoker tobacco type: e-cigarettes alcohol intake: current alcohol intake frequency: holidays/special occasions only substance use type: does not use ROS Constitutional Constitutional: Denies anorexia, chills, fatigue, fever(s) or lethargy Cardiovascular Cardiovascular: Denies chest pain, edema, palpitations or syncope Respiratory/Chest Respiratory/Chest: Denies cough, shortness of breath at rest, shortness of breath with exertion or wheezing Gastrointestinal Gastrointestinal: Denies abdominal pain, constipation, diarrhea, nausea or vomiting Genitourinary Genitourinary: Reports urinary frequency; Denies dysuria Musculoskeletal Musculoskeletal: Reports joint swelling and limited range of motion; Denies back pain, extremity pain or joint pain Integumentary Integumentary: Denies dry skin Neurologic Neurologic: Reports behavior changes and confusion; Denies abnormal gait Psychiatric Psychiatric: Denies anxiety or depression Endocrine Endocrinology: Denies change in body appearance Hematologic/Lymphatic Hematologic/Lymphatic: Denies anemia Vital Signs Vital Signs Vital Signs: 09/12/21 14:07 09/12/21 18:00 Temperature 98.7 F Temperature Source Temporal Pulse Rate 104 H 94 Respiratory Rate 16 21 H Blood Pressure 150/91 H Blood Pressure Mean 110 Pulse Ox 97 Oxygen Delivery Method Room Air Room Air Weight Weight: 150 lb Body Mass Index (BMI) 30.2 Physical Exam Const alert General Appearance: cooperative and anxious Orientation / Consciousness: oriented to person and oriented to place HEENT normocephalic and head/scalp atraumatic Eyes conjunctivae normal and no scleral icterus Neck no lymphadenopathy and supple General: trachea midline Resp normal respiratory effort, normal air movement and clear to auscultation bilaterally Cardio regular rate, regular rhythm, S1 normal heart sound, S2 normal heart sound and peripheral pulses 2+ throughout GI normal to inspection, nondistended, normoactive bowel sounds, soft to palpation and non-tender Extremity normal capillary refill Extremity Narrative: Mild postoperative swelling to left knee General Extremity: no tenderness to palpation of joints or extremities Skin no rashes or lesions noted, no wounds and skin turgor normal Skin Narrative: No bleeding or drainage noted. Surgical dressing taken down by ER to evaluate site Neuro no focal motor deficits and no sensory deficits noted Speech: speech normal Motor Exam: Negative for general weakness Psych cooperative Attitude: agitated Activity / Motor Behavior: restless Speech: normal speech Mood & Affect: anxious Thought Process: disorganized and confused Results Lab / Micro Data Result Diagrams: 09/12/21 15:15 09/12/21 15:15 Labs: Laboratory Results - last 24 hr 09/12/21 15:15: WBC 11.5 H, RBC 3.79 L, Hgb 10.9 L, Hct 32.2 L, MCV 85.0, MCH 28.8, MCHC 33.9, RDW Std Deviation 39.8, RDW Coeff of Opal 12.9, Plt Count 255, MPV 10.6, Immature Gran % (Auto) 0.300, Neut % (Auto) 74.7 H, Lymph % (Auto) 13.2 L, [place] % (Auto) 11.7 H, Eos % (Auto) 0.0, Baso % (Auto) 0.1, Absolute Neuts (auto) 8.6 H, Absolute Lymphs (auto) 1.52, Nucleated RBC % 0 09/12/21 15:15: PT Cancelled, INR Cancelled, APTT Cancelled 09/12/21 15:15: Sodium 131 L, Potassium 4.3, Chloride 97 L, Carbon Dioxide 29.0, Anion Gap 5, BUN 18, Creatinine 0.89, Estim Creat Clear Calc 57.76, Est GFR (MDRD) Af Amer 79, Est GFR (MDRD) Non-Af 65, BUN/Creatinine Ratio 20.2 H, Glucose 120 H, Calcium 9.1, Troponin I High Sens 18 09/12/21 15:57: PT 13.2, INR 1.1, APTT 26.9 09/12/21 17:50: Urine Color Straw, Urine Clarity Clear, Urine pH 7.0, Ur Specific [place] 1.010, Urine Protein Negative, Urine Glucose (UA) Normal, Urine Ketones Negative, Urine Occult Blood Negative, Urine Nitrite Negative, Urine Bilirubin Negative, Urine Urobilinogen Normal, Ur Leukocyte Esterase Negative, Urine RBC 0 SEEN, Urine WBC 0 SEEN, Ur Squamous Epith Cells 0 SEEN, Urine Bacteria 0 SEEN, Urine Mucus 0 SEEN Radiology Impression Brain CT 09/12/21 14:51 IMPRESSION: There are no acute intracranial findings. Electronically Signed: Junior Bunch MD at 17:02 EST Reading Location ID and State: [facility] / [place] , Service support , Assessment & Plan Assessment/Plan (1) Postoperative confusion: (2) Atrial fibrillation: QUALIFIERS: Atrial fibrillation type: longstanding persistent Qualified Code(s): I48.11 - Longstanding persistent atrial fibrillation PLAN: 1. Postoperative confusion -Admit to PCU -Haldol IV as needed ordered as patient is agitated and restless -Normal saline 150 mL/h -If confusion persist will obtain MRI of brain -We will hold narcotic pain medication at this time -BMP, CBC, ordered -PT and OT to eval and treat secondary to left knee replacement yesterday 2. Atrial fibrillation -Continue to hold Eliquis secondary to surgery -Continue diltiazem -Continuous cardiac monitoring 3. Hypertension -Continue atenolol -Vital signs per protocol, currently stable 4. Hypothyroidism -continue levothyroxine -TSH in a.m. 5. Hyperlipidemia -Continue atorvastatin DVT prophylaxis-SCDs, no pharmacological prophylaxis secondary to surgery This patient was seen by Monique Schultz NP-C under the supervision of Dr. Farooq. 29 minutes spent in clinical coordination of patient's plan of care. Documented by User: Dr. Thelma Farooq MD 09/12/21 22:00 HPI - General General Date of Admission: 09/12/21 [facility] Medical History Atrial fibrillation with rapid ventricular response Chronic pain Full dentures GERD (gastroesophageal reflux disease) High cholesterol History of atrial fibrillation History of hypothyroidism Hypertension Hypothyroidism New onset a-fib Sleep apnea Smoker Home Medications atenolol 25 mg PO DAILY 06/20/21 [History Last Taken 09/11/21 04:30] atorvastatin 40 mg PO QHS 06/20/21 [History Last Taken 06/20/21] levothyroxine [Euthyrox] 100 mcg PO DAILY 06/20/21 [History Last Taken 09/11/21 04:30] omeprazole magnesium [Prilosec OTC] 20 mg PO DAILY 06/20/21 [History Last Taken 09/11/21 04:30] Eliquis 5 mg PO BID 08/28/21 [History Last Taken 09/07/21] diltiazem HCl 180 mg PO DAILY 08/28/21 [History Last Taken Unknown] acetaminophen 1,000 mg PO Q6H #100 tab 09/11/21 [Rx Last Taken Unknown] albuterol sulfate 0.63 mg INHALATION Q4H PRN #0 ml 09/11/21 [Rx Last Taken Unknown] oxycodone 5 - 10 mg PO Q4H PRN PRN 7 Days #60 tab 09/11/21 [Rx Last Taken Unknown] Allergy/AdvReac Type Severity Reaction Status Date / Time No Known Allergies Allergy Verified 09/12/21 19:10 Family History Father Hypertension Heart disease other (Unable to confirm maternal history secondary to patient acute confusion.) Surgical History History of total left knee replacement Hx of excision of mass Hx of hysterectomy Social History (Updated 09/12/21 @ 21:[address] Thelma Farooq MD) household members: none Smoking Status: Current every day smoker tobacco type: e-cigarettes alcohol intake: current alcohol intake frequency: holidays/special occasions only substance use type: does not use Results Lab / Micro Data Result Diagrams: 09/12/21 15:15 09/12/21 15:15
[2021-09-12] MEDS: LORazepam 2 MG/ML Syringe 0.5 MG IV (20:27)
[2021-09-12 20:41] VITALS: PULSE 137; BMI 30.4
[2021-09-12 20:53] VITALS: BP 162/83; PULSE 105; RESP 18; TEMP 37; O2SAT 96
[2021-09-12] MEDS: Haloperidol Lactate 5 MG/ML Vial 2 MG IV ×3 (21:22→23:45)
[2021-09-12] MEDS: Atorvastatin Calcium 40 MG Tablet PO (21:23)
[2021-09-12] MEDS: MELATONIN 3 MG TABLET PO (21:23)
[2021-09-12] MEDS: Acetaminophen 500 MG Tablet 1000 MG PO (21:23)
[2021-09-12] MEDS: Haloperidol Lactate 5 MG/ML Vial 1 MG IV (22:07)
--- NOTE | 2021-09-12 23:01 | NURSING ---
Scopolamine patch found behind pts right ear at this time. Patch removed at this time.
[2021-09-13] MEDS: LORazepam 2 MG/ML Syringe 0.5 MG IV (00:14)
[2021-09-13] MEDS: 0.9% Normal Saline 1,000 ML 150 ML IV ×2 (00:19→06:29)
--- NOTE | 2021-09-13 01:17 | NURSING ---
Dr. Farooq at bedside, states once patient is asleep let her sleep and do not attempt to wake her up for vitals or medications.
[2021-09-13] MEDS: Haloperidol Lactate 5 MG/ML Vial 2 MG IV (02:58)
[2021-09-13 03:42] VITALS: BP 124/76; PULSE 114; RESP 16; TEMP 36.9; O2SAT 94
[2021-09-13 04:26] VITALS: PULSE 105
[2021-09-13 05:37] LABS: Absolute Lymphocyte Count 1.64 X10^3/uL (0.83-4.51); Absolute Neutrophil Count 5.9 X10^3/uL (2.0-7.7); Basophil# 0.02 X10^3/uL; Basophil% 0.2 % (0-1); Eosinophil# 0.02 X10^3/uL; Eosinophils% 0.2 % (0-5); Hematocrit 33.1 % (37-47); Hemoglobin 11.6 g/dL (12.0-15.0); Lymphocyte # 1.64 X10^3/ul (0.83-4.51); Lymphocyte % 18.9 % (19-41); Mean Corpuscular Hgb 29.5 pg (27.0-32.0); Mean Corpuscular Volume 84.2 fL (81-99); Monocyte# 1.07 X10^3/uL; Monocyte% 12.3 % (0-10); NRBC Flagged by Analyzer 0 % (0-5); Neutrophil # 5.89 X10^3/uL (2.7-7.7); Neutrophil % 67.9 % (47-70); Platelet Count 218 K/mm3 (150-450); RBC Distribution Width CV 12.8 % (11.6-14.6); RBC Distribution Width SD 39.2 fl (35.1-43.9); Red Blood Count 3.93 M/mm3 (4.2-5.4); White Blood Count 8.7 K/mm3 (4.4-11.0)
[2021-09-13 06:08] LABS: Anion Gap 6 (5-15); BUN 13 mg/dL (7-18); BUN/Creat Ratio 19.5 RATIO (10-20); Calcium,Total 8.5 mg/dL (8.5-10.1); Chloride 106 mmol/L (98-107); Creatinine, Serum 0.67 mg/dL (0.55-1.02); EST Glomerular Filtration Rate 91 mL/min (>60); Est Glom Filt Rate - Afr Amer 111 mL/min (>60); Estimated Creatinine Clearance 51.23 ml/min; Glucose 116 mg/dL (74-106); Potassium 3.5 mmol/L (3.5-5.1); Sodium Level 138 mmol/L (136-145); Thyroid Stim Hormone (TSH) 1.03 uIU/mL (0.358-3.74)
[2021-09-13] MEDS: Levothyroxine 100 MCG Tablet PO (06:30)
[2021-09-13] MEDS: Acetaminophen 500 MG Tablet 1000 MG PO ×2 (06:30→11:24)
[2021-09-13 07:00] VITALS: PULSE 92
[2021-09-13 07:06] VITALS: O2SAT 96
[2021-09-13 08:01] VITALS: BP 138/76; PULSE 118; RESP 16; TEMP 37.7; O2SAT 96
[2021-09-13] MEDS: Atenolol 25 MG Tablet PO (08:03)
[2021-09-13] MEDS: dilTIAZem CD 180 MG Capsule PO (08:03)
[2021-09-13] MEDS: Pantoprazole Sodium 20 MG Tablet PO (08:03)
--- NOTE | 2021-09-13 11:09 | PCM.DC ---
Discharge Instructions Diet Discharge Diet: No restrictions Activity Weight Bearing Status: Weight bearing as tolerated Additional Activity Instructions:: ce and elevate one week while not ambulating. Ambulation is encouraged. Weightbearing as tolerated. Use assistive devise for stability. Encourage FULL knee extension and flexion 1 time EVERY time you get up and down and MULTIPLE times per day. No showering 72 hours after surgery. Begin showering postop day #3. Remove the dressing prior to shower and gently wash with warm water and antibacterial soap then pat dry and place abdominal pad (or plain gauze) and DAPHNE hose over top. This is to be done daily. Do not submerge for 3 weeks. If not showering daily after the initial 72 hours then you must clean incision and change dressing daily. Do not allow animals near the incision area. Keep clean. Follow anticoagulation recommendations as prescribed. Do not take any NSAIDs while on blood thinner. Do not take any additional narcotic pain medication other than what was prescribed on your surgery day without discussing with physician. Narcotic medication can be addictive. Do not drink alcohol while taking narcotics. Start physical therapy. If you are not currently scheduled for physical therapy or you are unsure of appointment time please call office [facility] to arrange. Call Dr. Domingo with any concerns. Dressing / Incision Call your doctor if your incision/area has: Continuous Slow Oozing, Sudden Increased Bleeding, Increased Pain/ Swelling, Increased Redness, Foul Smelling Discharge and Swelling at the incision site Follow Up Care Test Results: Test results from this visit will be discussed in further detail at your follow-up appointment, if applicable. Discharge Plan Admission Admit Date/Time: 09/12/21 19:50 Primary Reason for Your Visit: Postoperative confusion Attending Provider: Umer Figueroa Primary Care Provider: Ward Barker Discharge Orders/Prescriptions Prescriptions: Continued atorvastatin 40 mg tablet 40 mg PO QHS RF: 0 atenolol 25 mg tablet 25 mg PO DAILY RF: 0 levothyroxine [Euthyrox] 88 mcg tablet 100 mcg PO DAILY RF: 0 omeprazole magnesium [Prilosec OTC] 20 mg Tablet,Delayed Release (Dr/Ec) 20 mg PO DAILY RF: 0 diltiazem HCl 180 mg capsule,extended release 24hr 180 mg PO DAILY RF: 0 Eliquis 5 mg tablet 5 mg PO BID RF: 0 Hold Instructions: Resume on 09/12/21. Begin day after surgery acetaminophen 500 mg Tablet 1,000 mg PO Q6H Qty: 100 RF: 0 oxycodone 5 mg Tablet 5 - 10 mg PO Q4H PRN PRN (Reason: Pain Score 4-10) 7 Days Qty: 60 RF: 0 albuterol sulfate 0.63 mg/3 mL Solution For Nebulization 0.63 mg INHALATION Q4H PRN (Reason: SOB) Qty: 0 RF: 0 Referrals / Follow Up: Ward Barker MD [Primary Care Provider] - In 1 Week Gt Domingo DO [STAFF PHYSICIAN] - Within 2 Weeks Disposition Disposition (needs filled in before D/C Order can be placed): Home, Self Care
--- NOTE | 2021-09-13 11:15 | PCM.DC.SUM ---
Documented by User: Ifrah Rodriguez NP, B[employer] G[employer] SPECIALIST-C 09/13/21 11:25 Providers Date of Admission: 09/12/21 Date of Discharge: 09/13/21 Primary Care Physician: Dr. Ward Barker MD Reason For Visit: POST PROCEDURAL CONFUSION Diagnosis Discharge Diagnosis (1) Postoperative confusion: Status: Acute Code(s): R41.0 - Disorientation, unspecified (2) Atrial fibrillation: Status: Acute Code(s): I48.91 - Unspecified atrial fibrillation Qualifiers: Atrial fibrillation type: longstanding persistent Qualified Code(s): I48.11 - Longstanding persistent atrial fibrillation Medications at Discharge Home Medications atenolol 25 mg PO DAILY 06/20/21 atorvastatin 40 mg PO QHS 06/20/21 levothyroxine [Euthyrox] 100 mcg PO DAILY 06/20/21 omeprazole magnesium [Prilosec OTC] 20 mg PO DAILY 06/20/21 Eliquis 5 mg PO BID 08/28/21 diltiazem HCl 180 mg PO DAILY 08/28/21 acetaminophen 1,000 mg PO Q6H #100 tab 09/11/21 albuterol sulfate 0.63 mg INHALATION Q4H PRN #0 ml 09/11/21 oxycodone 5 - 10 mg PO Q4H PRN PRN 7 Days #60 tab 09/11/21 Hospital Course Operations None Procedures None Summary of Care Provided Hospital Course: Patient is a 76-year-old female admitted 09/12/2021 due to altered mental status. 1. Postoperative confusion-likely secondary to anesthesia, narcotics, scopolamine patch as well as urinary retention. Brain CT unremarkable. UA, labs unremarkable. No evidence of infectious etiology. Patient was monitored overnight and confusion resolved. Alert and oriented on day of discharge. Portillo catheter removed, voiding trial prior to discharge. Follow-up with PCP in 1 week. 2. Status post left total knee arthroplasty [id number] with orthopedic medicine as scheduled. 2. Paroxysmal atrial fibrillation-on atenolol, Cardizem. Okay to resume Eliquis per surgery 4. Hypertension-stable, continue home regimen including Cardizem, atenolol. 5. Hyperlipidemia-continue statin. 6. Hypothyroidism-continue home Synthroid regimen. 7. GERD-continue PPI. Patient seen and examined prior to discharge. Physical assessment as noted below. Patient is stable for discharge with follow up recommendations as noted above. This patient was seen by CORA Cifuentes under the supervision of Dr. Figueroa. Physical Exam Const alert, oriented x3 and no apparent distress Orientation / Consciousness: awake, oriented to person, oriented to place and oriented to time HEENT normocephalic and moist oral mucous membranes Eyes PERRL, EOMs intact bilaterally and conjunctivae normal Neck no lymphadenopathy Resp normal respiratory effort and clear to auscultation bilaterally Cardio regular rate, regular rhythm and no murmurs Peripheral Pulses: pulses 2+ throughout GI normal to inspection, nondistended, normoactive bowel sounds, non-tender and non-distended Extremity normal to inspection Skin no rashes or lesions noted Lesions: no lesions Rashes: no rashes Trauma: no lacerations or abrasions Neuro CN's II-XII intact bilaterally, no focal motor deficits, no sensory deficits noted and deep tendon reflexes 2+ bilaterally Psych mental status grossly normal and affect normal Weight / BMI Weight Weight: 149 lb 7.574 oz Body Mass Index (BMI) 30.4 ABG / Lab / Microbiology Data Result Diagrams: 09/13/21 05:14 09/13/21 05:14 Laboratory: Laboratory Results - last 24 hr 09/12/21 15:15: WBC 11.5 H, RBC 3.79 L, Hgb 10.9 L, Hct 32.2 L, MCV 85.0, MCH 28.8, MCHC 33.9, RDW Std Deviation 39.8, RDW Coeff of Opal 12.9, Plt Count 255, MPV 10.6, Immature Gran % (Auto) 0.300, Neut % (Auto) 74.7 H, Lymph % (Auto) 13.2 L, [place] % (Auto) 11.7 H, Eos % (Auto) 0.0, Baso % (Auto) 0.1, Absolute Neuts (auto) 8.6 H, Absolute Lymphs (auto) 1.52, Nucleated RBC % 0 09/12/21 15:15: PT Cancelled, INR Cancelled, APTT Cancelled 09/12/21 15:15: Sodium 131 L, Potassium 4.3, Chloride 97 L, Carbon Dioxide 29.0, Anion Gap 5, BUN 18, Creatinine 0.89, Estim Creat Clear Calc 57.76, Est GFR (MDRD) Af Amer 79, Est GFR (MDRD) Non-Af 65, BUN/Creatinine Ratio 20.2 H, Glucose 120 H, Calcium 9.1, Troponin I High Sens 18 09/12/21 15:57: PT 13.2, INR 1.1, APTT 26.9 09/12/21 17:50: Urine Color Straw, Urine Clarity Clear, Urine pH 7.0, Ur Specific [place] 1.010, Urine Protein Negative, Urine Glucose (UA) Normal, Urine Ketones Negative, Urine Occult Blood Negative, Urine Nitrite Negative, Urine Bilirubin Negative, Urine Urobilinogen Normal, Ur Leukocyte Esterase Negative, Urine RBC 0 SEEN, Urine WBC 0 SEEN, Ur Squamous Epith Cells 0 SEEN, Urine Bacteria 0 SEEN, Urine Mucus 0 SEEN 09/13/21 05:14: WBC 8.7, RBC 3.93 L, Hgb 11.6 L, Hct 33.1 L, MCV 84.2, MCH 29.5, MCHC 35.0, RDW Std Deviation 39.2, RDW Coeff of Opal 12.8, Plt Count 218, MPV 10.0, Immature Gran % (Auto) 0.500, Neut % (Auto) 67.9, Lymph % (Auto) 18.9 L, [place] % (Auto) 12.3 H, Eos % (Auto) 0.2, Baso % (Auto) 0.2, Absolute Neuts (auto) 5.9, Absolute Lymphs (auto) 1.64, Nucleated RBC % 0 09/13/21 05:14: Sodium 138, Potassium 3.5, Chloride 106, Carbon Dioxide 26.0, Anion Gap 6, BUN 13, Creatinine 0.67, Estim Creat Clear Calc 51.23, Est GFR (MDRD) Af Amer 111, Est GFR (MDRD) Non-Af 91, BUN/Creatinine Ratio 19.5, Glucose 116 H, Calcium 8.5, TSH 1.03 Radiography Diagnostic Testing: Radiology Impression Brain CT 09/12/21 14:51 IMPRESSION: There are no acute intracranial findings. Electronically Signed: Junior Bunch MD at 17:02 EST , D/C Instructions Discharge Diet: No restrictions Weight Bearing Status: Weight bearing as tolerated Additional Activity Instructions: ce and elevate one week while not ambulating. Ambulation is encouraged. Weightbearing as tolerated. Use assistive devise for stability. Encourage FULL knee extension and flexion 1 time EVERY time you get up and down and MULTIPLE times per day. No showering 72 hours after surgery. Begin showering postop day #3. Remove the dressing prior to shower and gently wash with warm water and antibacterial soap then pat dry and place abdominal pad (or plain gauze) and DAPHNE hose over top. This is to be done daily. Do not submerge for 3 weeks. If not showering daily after the initial 72 hours then you must clean incision and change dressing daily. Do not allow animals near the incision area. Keep clean. Follow anticoagulation recommendations as prescribed. Do not take any NSAIDs while on blood thinner. Do not take any additional narcotic pain medication other than what was prescribed on your surgery day without discussing with physician. Narcotic medication can be addictive. Do not drink alcohol while taking narcotics. Start physical therapy. If you are not currently scheduled for physical therapy or you are unsure of appointment time please call office [facility] to arrange. Call Dr. Domingo with any concerns. Call your doctor if your incision/area has: Continuous Slow Oozing, Sudden Increased Bleeding, Increased Pain/ Swelling, Increased Redness, Foul Smelling Discharge and Swelling at the incision site Meaningful Use Info Meaningful Use Diagnoses (Choose all that apply): None applicable Discharge Plan Admission Admit Date/Time: 09/12/21 19:50 Primary Reason for Your Visit: Postoperative confusion Attending Provider: Umer Figueroa Primary Care Provider: Ward Barker Discharge Orders/Prescriptions Prescriptions: Continued atorvastatin 40 mg tablet 40 mg PO QHS RF: 0 atenolol 25 mg tablet 25 mg PO DAILY RF: 0 levothyroxine [Euthyrox] 88 mcg tablet 100 mcg PO DAILY RF: 0 omeprazole magnesium [Prilosec OTC] 20 mg Tablet,Delayed Release (Dr/Ec) 20 mg PO DAILY RF: 0 diltiazem HCl 180 mg capsule,extended release 24hr 180 mg PO DAILY RF: 0 Eliquis 5 mg tablet 5 mg PO BID RF: 0 Hold Instructions: Resume on 09/12/21. Begin day after surgery acetaminophen 500 mg Tablet 1,000 mg PO Q6H Qty: 100 RF: 0 oxycodone 5 mg Tablet 5 - 10 mg PO Q4H PRN PRN (Reason: Pain Score 4-10) 7 Days Qty: 60 RF: 0 albuterol sulfate 0.63 mg/3 mL Solution For Nebulization 0.63 mg INHALATION Q4H PRN (Reason: SOB) Qty: 0 RF: 0 Referrals / Follow Up: Ward Barker MD [Primary Care Provider] - In 1 Week Gt Domingo DO [STAFF PHYSICIAN] - Within 2 Weeks Disposition Disposition (needs filled in before D/C Order can be placed): Home, Self Care Documented by User: Dr. Umer Figueroa MD 09/13/21 13:47 Providers Date of Admission: 09/12/21 Reason For Visit: POST PROCEDURAL CONFUSION Medications at Discharge Home Medications atenolol 25 mg PO DAILY 06/20/21 atorvastatin 40 mg PO QHS 06/20/21 levothyroxine [Euthyrox] 100 mcg PO DAILY 06/20/21 omeprazole magnesium [Prilosec OTC] 20 mg PO DAILY 06/20/21 Eliquis 5 mg PO BID 08/28/21 diltiazem HCl 180 mg PO DAILY 08/28/21 acetaminophen 1,000 mg PO Q6H #100 tab 09/11/21 albuterol sulfate 0.63 mg INHALATION Q4H PRN #0 ml 09/11/21 oxycodone 5 - 10 mg PO Q4H PRN PRN 7 Days #60 tab 09/11/21 Hospital Course Operations None Summary of Care Provided Minutes Spent on Discharge: 35 Hospital Course: This patient was seen in conjunction with CORA Cifuentes . I have independently interviewed and examined the patient and reviewed pertinent historical, laboratory, and other data. Please refer to CORA Cifuentes note for details of this patient's presentation, findings, and recommendations. I have reviewed Ifrah Rodriguez NP-C note and concur with documented findings. In brief, patient is a 76-year-old lady who underwent CT-guided robotic assisted left total knee arthroplasty on 09/11/2021 was discharged home same day presented back to the emergency department later on in the evening with acute delirium felt to be secondary to her pain meds. Admitted to a monitored bed for subsequent management Physical Examination: GENERAL: cooperative HEENT: Atraumatic; EYES; Anicteric, Normal Conjunctiva NECK; supple, normal thyroid, RESPIRATORY: Diminished to auscultation CARDIOVASCULAR: Regular S1 S2, GI: soft, normoactive bowel sounds, : No Renal angle tenderness; EXTREMITIES: No edema, no clubbing, MUSCULOSKELETAL: Left knee in surgical dressing NEURO: Awake; no lateralizing signs. SKIN: No Rash PSYCH; Flat affect Hospital course; as documented above Total time spent by myself and the advanced practice practitioner evaluating patient, reviewing labs, subsequent management decisions, discussion with patient as well as other providers 35 minutes ( 20 of which was spent by myself) ABG / Lab / Microbiology Data Result Diagrams: 09/13/21 05:14 09/13/21 05:14 Discharge Plan Admission Admit Date/Time: 09/12/21 19:50 Primary Reason for Your Visit: Postoperative confusion Attending Provider: Umer Figueroa Primary Care Provider: Ward Barker Discharge Orders/Prescriptions Prescriptions: Continued atorvastatin 40 mg tablet 40 mg PO QHS RF: 0 atenolol 25 mg tablet 25 mg PO DAILY RF: 0 levothyroxine [Euthyrox] 88 mcg tablet 100 mcg PO DAILY RF: 0 omeprazole magnesium [Prilosec OTC] 20 mg Tablet,Delayed Release (Dr/Ec) 20 mg PO DAILY RF: 0 diltiazem HCl 180 mg capsule,extended release 24hr 180 mg PO DAILY RF: 0 Eliquis 5 mg tablet 5 mg PO BID RF: 0 Hold Instructions: Resume on 09/12/21. Begin day after surgery acetaminophen 500 mg Tablet 1,000 mg PO Q6H Qty: 100 RF: 0 oxycodone 5 mg Tablet 5 - 10 mg PO Q4H PRN PRN (Reason: Pain Score 4-10) 7 Days Qty: 60 RF: 0 albuterol sulfate 0.63 mg/3 mL Solution For Nebulization 0.63 mg INHALATION Q4H PRN (Reason: SOB) Qty: 0 RF: 0 Referrals / Follow Up: Ward Barker MD [Primary Care Provider] - In 1 Week Gt Domingo DO [STAFF PHYSICIAN] - Within 2 Weeks Disposition Disposition (needs filled in before D/C Order can be placed): Home, Self Care Hospital Course Operations None
[2021-09-13 11:30] VITALS: BP 109/63; PULSE 72; RESP 16; TEMP 36.6; O2SAT 97
--- NOTE | 2021-09-13 12:16 | CASEMGMT ---
KENDRA CHOUDHURY NOTE: Pt being discharged home. PT/OT evals have been done and they spoke w/RN MACEY and state pt did well and is safe to return home. KENDRA CHOUDHURY to room to talk w/pt and dtr, Kimberly, who is in room w/pt at this time. Kimberly states she feels comfortable taking pt home and still wants [facility]. Pt agreeable to same. Renata @ [facility] aware pt is being discharged home today. She states SOC slated for Friday. Pt and Kimberly made aware and are agreeable to same. They deny having any further home-going or discharge planning needs. Rafael QUICKN KENDRA CM
== END 2021-09-13 11:12 | disposition home health service (06) ==
LOC: ED 19:53 → PCU 19:56
PROVIDERS: Nurse Practitioner Family; Admitting Provider Family Medicine; Emergency Provider Emergency Medicine; PCP Family Medicine; Visit Provider Internal Medicine
DX: F05 Delirium due to known physiological condition (principal); I48.11 Longstanding persistent atrial fibrillation; Z79.01 Long term (current) use of anticoagulants; E78.5 Hyperlipidemia, unspecified; F17.290 Nicotine dependence, other tobacco product, uncomplicated; Z96.652 Presence of left artificial knee joint; I10 Essential (primary) hypertension; E03.9 Hypothyroidism, unspecified; K21.9 Gastro-esophageal reflux disease without esophagitis; Z79.899 Other long term (current) drug therapy; Z79.890 Hormone replacement therapy; G89.4 Chronic pain syndrome; G47.33 Obstructive sleep apnea (adult) (pediatric); R35.0 Frequency of micturition; M19.90 Unspecified osteoarthritis, unspecified site
CPT/HCPCS: 36415; 70450; 80048; 81001; 84443; 84484; 85025; 85610; 85730; 93005; 96361; 96374; 96375; 96376; 97162; 97166; 99218; 99285; J7030; A4216; G0378

== ENCOUNTER 2021-10-12 20:23 | Outpatient (CLI) | payer MEDICARE, OTHER, SELFPAY | END 2021-10-12 23:59 | disposition home or self-care (01) | PROVIDERS: PCP Family Medicine; Referring Provider Family Medicine; Visit Provider Family Medicine | DX: G47.33 Obstructive sleep apnea (adult) (pediatric) (principal) | CPT/HCPCS: 95811 ==

== ENCOUNTER 2022-09-08 02:18 | Emergency (ER) | payer MEDICARE, OTHER, SELFPAY ==
[2022-09-08 02:19] VITALS: BP 165/67; PULSE 79; RESP 18; TEMP 36.6; O2SAT 98; BMI 31.8
--- NOTE | 2022-09-08 02:35 | EKG12_ITS ---
Test Reason : CP Blood Pressure : / mmHG Vent. Rate : 067 BPM Atrial Rate : 067 BPM P-R Int : 152 ms QRS Dur : 078 ms QT Int : 396 ms P-R-T Axes : 080 029 020 degrees QTc Int : 418 ms Normal sinus rhythm Low voltage QRS (Limb Leads) Confirmed by WINDY JIMÉNEZ, LILIAN ([id number]), index editor SAKSHI FARMER ([id number]) on 09/09/2022 1:54:32 PM Referred By: VALERIA Confirmed By:LILIAN TEMPLE MD
--- NOTE | 2022-09-08 02:39 | EDS_ITS ---
HPI History of Present Illness Chief Complaint: Chest Pain Informant: patient Narrative Narrative: Patient presents for some pain in her left arm and left chest. She states she has been feeling fine. She had cardioversion for atrial fibrillation about 10 days ago. Prior to this she would get some chest pain with atrial fibrillation. She states it was similar to this but not exactly the same. She has not been having symptoms since the cardioversion. Her diltiazem was decreased from 180-120 a day. She states she had been up late reading. She got into bed about 1230 or 1. When she got into bed and she rolled over she got a pain in her left arm and chest. She states it felt like a muscle strain but she was concerned because it did not go away right away. It is now feeling better. It occurred when she turned over. No numbness tingling or weakness. She never got short of breath nausea vomiting or diaphoresis. Although she has had atrial fibrillation, she has never had stents or bypass surgery. PFSH PFSH Medical History Atrial fibrillation with rapid ventricular response Chronic pain Full dentures GERD (gastroesophageal reflux disease) High cholesterol Hypertension Hypothyroidism Sleep apnea Smoker Home Medications atenolol 25 mg tablet 25 mg PO DAILY HEART 06/20/21 [History Last Taken 09/11/21 04:30] atorvastatin 40 mg tablet 40 mg PO QHS CHOLESTEROL 06/20/21 [History Last Taken 06/20/21] levothyroxine 88 mcg tablet (Euthyrox) 100 mcg PO DAILY THYROID 06/20/21 [History Last Taken 09/11/21 04:30] omeprazole magnesium 20 mg tablet,delayed release (Prilosec OTC) 20 mg PO DAILY GERD 06/20/21 [History Last Taken 09/11/21 04:30] diltiazem HCl 180 mg capsule,extended release 24 hr 180 mg PO DAILY Afib 08/28/21 [History Last Taken Unknown] acetaminophen 500 mg tablet 1,000 mg PO Q6H #100 tabs 09/11/21 [Rx Last Taken Unknown] albuterol sulfate 0.63 mg/3 mL solution for nebulization 0.63 mg (3 mL) inhalation Q4H PRN SOB #0 mL 09/11/21 [Rx Last Taken Unknown] Allergy/AdvReac Type Severity Reaction Status Date / Time No Known Allergies Allergy Verified 09/24/21 15:28 Family History Father Hypertension Heart disease Surgical History History of total left knee replacement Hx of excision of mass Hx of hysterectomy Social History household members: none Smoking Status: Former smoker alcohol intake: current alcohol intake frequency: holidays/special occasions only substance use type: does not use ROS ROS ED Constitutional Constitutional ED: Denies chills, fever(s), subjective or sweats Eyes Eyes: Denies change in vision ENT ENT ED: Denies rhinorrhea or sore throat Cardiovascular Cardiovascular: Reports as per HPI Respiratory/Chest Respiratory/Chest: Denies cough or dyspnea Gastrointestinal Gastrointestinal: Denies nausea or vomiting Musculoskeletal Musculoskeletal: Denies back pain or neck pain Integumentary Denies Abrasions or rash Neurologic Neurologic: Denies paresthesias or weakness Endocrine Endocrinology: Denies polydipsia or polyuria Hematologic/Lymphatic Hematologic/Lymphatic: Denies lymphadenopathy EXAM Physical Exam Narrative Exam Narrative: Patient is lying in bed she is awake alert appropriate no acute distress. HEENT shows no trauma mucous membranes are moist Neck shows no JVD or pain with motion Lungs are clear bilaterally. No pain with a deep breath. No really chest wall tenderness either. No rashes. No subcu air. Heart is regular with a rate about 75 on the monitor. She appears to be in a normal sinus rhythm. She has an occasional PAC. But she is not in atrial fibrillation now. Abdomen is soft completely nontender Back shows no spinal tenderness. shows no CVA or suprapubic tenderness Extremities show no edema cords asymmetry or tenderness along the deep venous system. Pulses are normal x4. Const Vital Signs: 09/08/22 02:19 09/08/22 02:23 09/08/22 02:39 Temperature 97.9 F Temperature Source Oral Pulse Rate 79 Respiratory Rate 18 Respiratory Effort Normal Non-Labored Blood Pressure 165/67 H Blood Pressure Mean 99 Pulse Ox 98 Oxygen Delivery Method Room Air Room Air 09/08/22 04:19 09/08/22 05:24 09/08/22 05:54 Temperature Temperature Source Pulse Rate 57 L 62 57 L Respiratory Rate 11 L 18 18 Respiratory Effort Blood Pressure 120/65 124/72 H 130/64 H Blood Pressure Mean 83 89 Pulse Ox 96 97 96 Oxygen Delivery Method Room Air Room Air MDM MDM MDM Narrative Medical decision making narrative: My independent interpretation of the patient's chest x-ray shows no pneumothorax infiltrate cardiomegaly or acute process. Final reading is negative also. Patient's CBC is normal. Electrolytes show no marked abnormalities. Troponin is negative at 9. We did repeat this. It is unchanged at 9. Her symptoms have never returned. It is unclear if this may have been musculoskeletal because it occurred just as she rolled over. It certainly possible she had a short run of A-fib as she has had pain like this with that. But she had a brief area of an time of pain. It is resolved with negative work-up I think she is appropriate for discharge. Lab Data Attestation: I reviewed the patient's lab results. Labs: Laboratory Results - last 24 hr 09/08/22 09/08/22 09/08/22 02:20 02:20 05:05 WBC 7.8 RBC 4.84 Hgb 13.9 Hct 42.7 MCV 88.2 MCH 28.7 MCHC 32.6 RDW Std Deviation 40.0 RDW Coeff of Opal 12.3 Plt Count 232 MPV 9.7 Immature Gran % (Auto) 0.300 Neut % (Auto) 46.3 L Lymph % (Auto) 36.4 [place] % (Auto) 11.2 H Eos % (Auto) 5.2 H Baso % (Auto) 0.6 Absolute Neuts (auto) 3.6 Absolute Lymphs (auto) 2.82 Nucleated RBC % 0 Sodium 136 Potassium 4.1 Chloride 100 Carbon Dioxide 28.0 Anion Gap 8 BUN 24 H Creatinine 0.90 Estim Creat Clear Calc 59.17 Est GFR (MDRD) Af Amer 78 Est GFR (MDRD) Non-Af 65 BUN/Creatinine Ratio 26.7 H Glucose 115 H Calcium 9.0 Troponin I High Sens 9 9 Radiography Diagnostic Testing: Clinical Impression(s) from Imaging Studies Chest X-Ray 09/08/22 02:45 IMPRESSION: No radiographic evidence of acute cardiopulmonary disease. Electronically Signed: Junior Hernandez MD at 3:11 EST , EKG Initial EKG: Comments: My independent interpretation of the patient's EKG done for history of chest pain shows a normal sinus rhythm with overall rate of 67. There is no acute ST elevation or depression. I see no ventricular or supraventricular ectopy on the EKG. MI interval, QRS duration and QTc is normal. Discharge Plan Triage Chief Complaint: Chest Pain ED Provider: Junior Johnson Dx/Rx/DC Orders Clinical Impression: Chest pain, Arm pain, left Instructions: ED Chest Pain, Uncertain Cause Prescriptions: No Action atorvastatin 40 mg tablet 40 mg PO QHS atenolol 25 mg tablet 25 mg PO DAILY levothyroxine [Euthyrox] 88 mcg tablet 100 mcg PO DAILY omeprazole magnesium [Prilosec OTC] 20 mg Tablet,Delayed Release (Dr/Ec) 20 mg PO DAILY diltiazem HCl 180 mg capsule,extended release 24hr 180 mg PO DAILY acetaminophen 500 mg Tablet 1,000 mg PO Q6H Qty: 100 0RF albuterol sulfate 0.63 mg/3 mL Solution For Nebulization 0.63 mg INHALATION Q4H PRN (Reason: SOB) Qty: 0 0RF Primary Care Provider: Ward Barker Referrals: Ward Barker MD [Primary Care Provider] - 3-5 Days Disposition Disposition: Home, Self Care Discharge Date/Time: 09/08/22 06:05
[2022-09-08] MEDS: Aspirin 81 MG TAB.CHEW 324 MG PO (02:41)
--- NOTE | 2022-09-08 02:45 | RAD_ITS ---
EXAM: XR CHEST, 1 VIEW CLINICAL INDICATION: chest pain TECHNIQUE: Frontal view of the chest. This report was created using [employer] report generation technology. COMPARISON: 06/20/2021 FINDINGS: LUNGS AND PLEURAL SPACES: Unremarkable. No consolidation or edema. No pneumothorax. No effusion. HEART: Unremarkable. Cardiac silhouette not enlarged. MEDIASTINUM: Central airways and mediastinal contour are unremarkable. BONES/JOINTS: Unremarkable. SOFT TISSUES: Unremarkable. RAD/Chest 1 View (Portable) IMPRESSION: No radiographic evidence of acute cardiopulmonary disease. Electronically Signed: Junior Hernandez MD at 3:11 EST ,
[2022-09-08 02:50] LABS: Absolute Lymphocyte Count 2.82 X10^3/uL (0.83-4.51); Absolute Neutrophil Count 3.6 X10^3/uL (2.0-7.7); Basophil# 0.05 X10^3/uL; Basophil% 0.6 % (0-1); Eosinophils% 5.2 % (0-5); Hematocrit 42.7 % (37-47); Hemoglobin 13.9 g/dL (12.0-15.0); Lymphocyte # 2.82 X10^3/ul (0.83-4.51); Lymphocyte % 36.4 % (19-41); Mean Corp Hgb Conc 32.6 g/dL (32-36); Mean Corpuscular Hgb 28.7 pg (27.0-32.0); Mean Corpuscular Volume 88.2 fL (81-99); Mean Platelet Vol. 9.7 fl (6.2-12.0); Monocyte# 0.87 X10^3/uL; Monocyte% 11.2 % (0-10); NRBC Flagged by Analyzer 0 % (0-5); Neutrophil # 3.59 X10^3/uL (2.7-7.7); Neutrophil % 46.3 % (47-70); Platelet Count 232 K/mm3 (150-450); RBC Distribution Width CV 12.3 % (11.6-14.6); Red Blood Count 4.84 M/mm3 (4.2-5.4); White Blood Count 7.8 K/mm3 (4.4-11.0)
[2022-09-08 03:11] LABS: Anion Gap 8 (5-15); BUN 24 mg/dL (7-18); BUN/Creat Ratio 26.7 RATIO (10-20); Chloride 100 mmol/L (98-107); EST Glomerular Filtration Rate 65 mL/min (>60); Est Glom Filt Rate - Afr Amer 78 mL/min (>60); Estimated Creatinine Clearance 59.17 ml/min; Glucose 115 mg/dL (74-106); Potassium 4.1 mmol/L (3.5-5.1); Sodium Level 136 mmol/L (136-145); Troponin-I HS (w/2H Reflex) 9 pg/mL (3.0-54.0)
[2022-09-08 04:19] VITALS: BP 120/65; PULSE 57; RESP 11; O2SAT 96
[2022-09-08 04:55] LABS: Reflex Troponin-HS? (from REC) Y
[2022-09-08 05:24] VITALS: BP 124/72; PULSE 62; RESP 18; O2SAT 97
[2022-09-08 05:40] LABS: Troponin-I HS 9 pg/mL (3.0-54.0)
[2022-09-08 05:54] VITALS: BP 130/64; PULSE 57; RESP 18; O2SAT 96
== END 2022-09-08 06:05 | disposition home or self-care (01) ==
PROVIDERS: Emergency Provider Emergency Medicine; PCP Family Medicine; Visit Provider Emergency Medicine
DX: R07.9 Chest pain, unspecified (principal); M79.602 Pain in left arm; G47.30 Sleep apnea, unspecified; Z87.891 Personal history of nicotine dependence
CPT/HCPCS: 71045; 80048; 84484; 85025; 93005; 99285; J7030; A4216

== ENCOUNTER → 2023-12-15 | Outpatient (CLI) | payer MEDICARE, OTHER, SELFPAY ==
--- NOTE | 2023-12-15 17:20 | RAD_ITS ---
INDICATION: Spondylosis without myelopathy or radiculopathy, lumbar region EXAMINATION/TECHNIQUE: X-RAY - XR Spine Lumbar 2 or 3 Views COMPARISON: No relevant prior comparison study available FINDINGS: VERTEBRAE: Preserved vertebral body height. No fracture. No spondylolisthesis. Preservation of the normal lumbar lordosis. Diffuse facet arthropathy. DISCS: Disc space narrowing throughout. Endplate osteophytes are noted. INCLUDED ABDOMEN: Included bowel gas pattern is non-obstructive. RAD/Lumbar Spine 2 or 3 Views IMPRESSION: No evidence of lumbar spinal fracture or spondylolisthesis. Moderate degenerative change throughout. Electronically Signed: Ammon Mohamud MD at 7:00 EDT ,
== END | disposition home or self-care (01) ==
LOC: RAD 17:00
PROVIDERS: PCP Family Medicine; Referring Provider Anesthesiology Pain Medicine; Visit Provider Anesthesiology Pain Medicine
DX: M51.37 Other intervertebral disc degeneration, lumbosacral region (principal); M47.816 Spondylosis without myelopathy or radiculopathy, lumbar region
CPT/HCPCS: 72100

== ENCOUNTER 2024-01-20 11:00 | Outpatient (RCR) | payer MEDICARE, OTHER, SELFPAY ==
--- NOTE | 2024-01-06 11:54 | HP.PTEVAL ---
Patient's Visit Information Visit Information Visit Information: ENRIKE MARS is a 78 year old F referred to Physical Therapy by Dr. Matthew Gupta MD with a diagnosis of NECK AND BACK PAIN. Date of Evaluation: 12/29/23 Physical Therapist: Marcela Bettencourt PT, Cert MDT Visit Plan Frequency: 2-3x /Week Duration: 4-6 Weeks Plan: AQUATIC THERAPY 2-3 TIMES A WK X 4-6 WKS FOR: NECK AND BACK PAIN RELIEF DLS AND POSTURE STRENGTHENING. SCAPULAR STRENGTH/STABILIZATION HIP FLEXOR, HS AND CALF STRETCHING GENTLE NECK AND UE AROM. Subjective Subjective: Work/Leisure: RETIRED. WALKS HER DOG ABOUT 1/4 MILE ABOUT ONCE A DAY Present symptoms: NECK AND BACK PAIN. ARAM SHLD PAIN. R UPPER ARM PAIN. ARAM POSTERIOR KNEE PAIN. ARAM WRIST PAIN AND SNAPPING IN R WRIST. NUMBNESS AND TINGLING IN ARAM HANDS. NUMBNESS AND TINGLING IN THE R FOOT TOO. R FOOT ALSO GETS CRAMPS. Present since: PATIENT REPORTS ALL OF HER SX'S ARE CHRONIC. Pain Scale: WORST 8/10, LEAST 3/10 Currently: 3/10 Is it getting better, worse or staying the same: STAYING THE SAME Commenced as a result of: NO APPARENT REASON Symptoms at onset: ARAM KNEE PAIN IS WHAT RECENTLY FLARED UP AND THEN OTHER PAINS GOT WORSE Worse: DOING HAIR, WALKING, SITTING, TRYING TO DO LAUNDRY, STEPS, GETTING GROCERIES, GETTING PRESCRIPTIONS, WALKING IN [employer], GETTING IN AND OUT OF CAR, RIDING IN THE CAR, LAYING ON R SIDE, TRYING TO GET COMFORTABLE AT NIGHT, LIFTING (SOMETIMES UNABLE TO LIFT A GALLON OF MILK). Better: [place], OWEN, CHANGE OF POSITION, SIT QUIETLY, WALKING AROUND A LITTLE BIT, HEATING PAD, NECK PILLOW, Disturbed sleep: YES Previous history/Previous treatment: CHIROPRACTIC FOR YEARS BUT DOESN'T HELP ANYMORE. MASSAGE HELPED IN THE PAST. NO SPINE SURGERY. Treatment this episode: OWEN FOR THE FIRST TIME LAST WEEK. NECK INJECTION BY DR. GUPTA - HELPED A LOT. Coughing/sneezing/straining: YES - INCREASES NECK PAIN Gait: SOMETIMES A CANE HELPS EASE THE PAIN. NO FALLS. Bowel or Bladder Dysfunction: URINARY LEAKING. NO BOWEL INCONTINENCE. Accidents: NO Unexplained weight loss: NO Imaging: SEE [facility] EMR. *OTHER: 10 LB LIFTING LIMIT PER DAUGHTER REPORT. PATIENTS DAUGHTER WAS WITH HER AT PATIENTS REQUEST THROUGHOUT EVAL. PMH/Recent major surgery: Hypothyroidism Chronic pain High cholesterol GERD (gastroesophageal reflux disease) Smoker - QUIT ABOUT 7 YEARS AGO. Sleep apnea Hypertension Atrial fibrillation with rapid ventricular response History of total left knee replacement Hx of excision of mass - benign Hx of hysterectomy Objective Objective: Sitting/Standing Posture: R ILIAC CREST HIGHER THAN R. TO RELEVANT LATERAL SHIFT. REDUCED LUMBAR LORDOSIS. FH. RSH'S. NO TORTICOLLIS. Other Observations: THIS PATIENT AMBULATED INDEP'LY INTO PT WITHOUT ANY AD'S OR LOB WITH SLOW ANTALGIC GAIT PATTERN. HER DAUGHTER IS WITH HER. SHE WALKS WITH DECREASED HEEL STRIKE AND TOE OFF PHASES OF GAIT. SHE IS ABLE TO INDEP'LY TRANSFER FROM SIT TO STAND WITHOUT UE ASSIT. PATIENT WAS PLEASANT AND COOPERATIVE TO WORK WITH THROUGHOUT MOST OF SESSION THEN BECAME IRRITATED WITH THIS THERAPIST BUT AGREEABLE TO CONTINUING WITH SESSION AND THEN WITH POC. Sensory deficit: ARAM UE AND LE LIGHT TOUCH SENSATION IS GROSSLY INTACT AND SYMMETRICAL. ROM deficit: ARAM HS AND CALF TIGHTNESS. ARAM SHLD TIGHTNESS. Motor deficit: ARAM UE'S AND LE'S GROSSLY 4-/5. Dural Signs: NEG ARAM LE'S. Lumbar mvmt loss: flex - NIL ext - SHAWN R SG - SHAWN L SG - SHAWN PATIENT C/O BURNING LBP WITH LUMBAR FLEXION ROM TESTING AND INCREASED LBP WITH ARAM SG TESTING L >R. NE WITH EXT TESTING. Cervical Mvmt Loss: Flex: NIL - INCREASES NECK PAIN - W Pro: NIL - INCREASES NECK - NW Ext: SHAWN - INCREASES - W Ret: SHAWN - INCREASES - W RSB: SHAWN - INCREASES - W LSB: SHAWN - INCREASES - W R Rot: SHAWN - INCREASES - W L Rot: SHAWN - INCREASES - W Postural strength: POOR Core strength: POOR Balance/Special Test Scores Oswestry Low Back Score: 28 Oswestry Neck Score: 16 Goals Goal 1:: DECREASE C/O NECK AND UE SX'S BY AT LEAST 50% TO EASE ADL'S Goal Time Frame: 4-6 Weeks Goal 2:: DECREASE C/O BACK AND LE SX'S BY AT LEAST 50% TO EASE ADL'S Goal Time Frame: 4-6 Weeks Goal 3:: PATIENT WILL COMPLETE 6 STANDS WITHOUT UE ASSIST IN 30 SECS WITHOUT INCREASED SX'S TO DEMONSTRATE IMPROVED FUNCTIONAL STRENGTH Goal Time Frame: 4-6 Weeks Goal 4:: PATIENT WILL BE ABLE TO WALK FOR AT LEAST 10 MINUTES WITH OR WITHOUT AD AND WITHOUT AGGREVATION OF SYMPTOMS IN ORDER TO PERFORM ADL'S AND IADL'S. Goal Time Frame: 4-6 Weeks Goal 5:: PATIENT WILL BE INDEP WITH A HEP FOR CONTINUED IMPROVEMENT ONCE FORMAL PHYSICAL THERAPY CONCLUDES. Goal Time Frame: 4-6 Weeks Goal 6:: PATIENT WILL SCORE AT LEAST 5 POINTS BETTER ON THE BACK AND NECK OSWESTRY QUESTIONNAIRES. Goal Time Frame: 4-6 Weeks Rehabilitation Potential Physical Therapy Diagnosis: THIS PATIENT PRESENTS TO PT WITH HYPOMOBILITY, NECK AND BACK STIFFNESS, AND UPPER AND LE WEAKNESS. Rehabilitation Potential: Good Anticipated Interventions Patient/Client Instruction: Educate patient on: Condition, Plan of Care and Risk Factors For the Purpose of:: To improve self management Therapeutic Exercise to Include: Strength training, Body mechanics, Postural training, Flexibilty training, Gait and locomotor training, Neuromotor development, In an aquatic setting, Dynamic Lumbar Stabilization and Scapular Strength/Stabilization For the Purpose of:: To decrease pain, To increase ROM, To improve muscle performance and motor function, To increase tolerance to activity/condition/position, To improve ability of physical actions for home/community/work/leisure, To improve gait and locomotor functions and To increase flexibility/ROM Text: Thank you for the opportunity to evaluate your patient. For Medicare and Medicare HMO plans, please review the plan of care and approve it. It will need to be FAXED BACK to us at [phone] for Medicare purposes. For Medicare only, by signing this I certify the plan of care. Please let me know if there are questions or concerns regarding this plan of care. Physician Signature: Date:
== END 2024-01-20 19:00 | disposition home or self-care (01) ==
LOC: PT 11:00
PROVIDERS: PCP Family Medicine; Visit Provider Anesthesiology Pain Medicine
DX: M54.2 Cervicalgia (principal)
CPT/HCPCS: 97113; 97162

== ENCOUNTER → 2025-06-21 | Outpatient (CLI) | payer MEDICARE, OTHER, SELFPAY ==
--- NOTE | 2025-06-21 08:56 | RAD_ITS ---
PROCEDURE: LUMBAR SPINE 2 OR 3 VIEWS 06/21/2025 REASON FOR EXAM: S/P FALL TECHNIQUE: Procedure Code: RADSPLL Modality: DX Procedure: LUMBAR SPINE 2 OR 3 VIEWS COMPARISON: December 15, 2023 FINDINGS: There is dextroscoliosis of the lumbar spine with Keen angle = 16 degrees from L2-5, apex L4. There is a 50% anterior compression deformity at L1, unchanged. There is grade 1 retrolisthesis at L1- 2, 0.5 cm. There is grade 1 retrolisthesis at L2-3, 0.3 cm. There is grade 1 retrolisthesis at L3-4, 0.3 cm. There is loss of disc height at each level. There is severe facet sclerosis. Osteopenia is noted. Vascular calcifications are present. RAD/Lumbar Spine 2 or 3 Views IMPRESSION: There is dextroscoliosis of the lumbar spine with Keen angle = 16 degrees from L2-5, apex L4. There is a 50% anterior compression deformity at L1, unchanged. There is grade 1 retrolisthesis at L1-2, 0.5 cm. There is grade 1 retrolisthesi s at L2-3, 0.3 cm. There is grade 1 retrolisthesis at L3-4, 0.3 cm. There is loss of disc height at each level. Reading Location: [id number]
[2025-06-21 10:12] LABS: Hematocrit 43.5 % (37-47); Hemoglobin 14.0 g/dL (12.0-15.0); Immature Granulocytes Count 0.020 X10^3/uL (0.0-0.0); Mean Corp Hgb Conc 32.2 g/dL (32-36); Mean Corpuscular Volume 89.1 fL (81-99); Mean Platelet Vol. 9.9 fl (6.2-12.0); NRBC Flagged by Analyzer 0 % (0-5); Platelet Count 248 K/mm3 (150-450); RBC Distribution Width CV 12.5 % (11.6-14.6); RBC Distribution Width SD 41.1 fl (35.1-43.9); Red Blood Count 4.88 M/mm3 (4.2-5.4); White Blood Count 8.9 K/mm3 (4.4-11.0)
[2025-06-21 10:41] LABS: AST(SGOT) 29 U/L (<=31); Alanine Aminotransfer ALT/SGPT 31 U/L (<=34); Albumin, Serum 4.1 g/dL (3.4-4.8); Alkaline Phosphatase 126 U/L (35-104); Anion Gap 9 (5-15); BUN 16 mg/dL (4-19); BUN/Creat Ratio 18.4 RATIO (10-20); Calcium,Total 9.3 mg/dL (7.6-11.0); Carbon Dioxide 27.5 mmol/L (21.0-32.0); Chloride 101 mmol/L (98-108); Cholesterol 130 mg/dL (<=200); Globulin 3.0 g/dL (2.2-4.2); Glucose 108 mg/dL (70-99); Low Density Lipoprotein Calc. 62 mg/dL; Potassium 4.6 mmol/L (3.3-5.1); Triglycerides 116 mg/dL; Very Low Density Lipoprotein 23 mg/dL (5-40); cholesterol:hdl ratio screen 2.74
== END | disposition home or self-care (01) ==
PROVIDERS: PCP Nurse Practitioner Family; Referring Provider Nurse Practitioner Family; Visit Provider Nurse Practitioner Family
DX: I10 Essential (primary) hypertension (principal); E03.9 Hypothyroidism, unspecified; M54.9 Dorsalgia, unspecified; W19.XXXA Unspecified fall, initial encounter
CPT/HCPCS: 36415; 72100; 80053; 80061; 84443; 85025